=== PATIENT | female | born 1930 | race Caucasian/White ===

== ENCOUNTER 2019-02-26 23:11 | Inpatient (IN) | payer MEDICARE ==
[~2019-02-26 23:11] MED LIST: ISOVUE-370 76%-LOCM 1 ML ONE
[2019-02-27] MEDS ORDERED: Morphine 4 MG/ML VIAL ONE (00:07)
[2019-02-27] MEDS ORDERED: Ondansetron ODT 4 MG TAB SL PRN (03:40)
[2019-02-27] MEDS ORDERED: Acetaminophen 325 MG TAB PO PRN (03:40)
[2019-02-27] MEDS ORDERED: Ondansetron PF 4 MG/2 ML Vial IVP PRN (03:40)
[2019-02-27] MEDS: Morphine 2 MG/ML SYRINGE SLOW IVP PRN ×2 (03:57→07:50)
--- NOTE | 2019-02-27 09:10 | CT ---
PRELIMINARY REPORT/[facility]/EMERGENCY AFTER HOURS PROCEDURE: Addendum created by Juana Hope MD on 02/27/2019 1:16 AM Central Time ([place] & [place]) Findings were discussed with SOFI Newsome at 02/27/2019 1:16 AM CDT. Initial Report created on 02/27/2019 1:1 2 AM Central Time ([place] & [place]) EXAM: CT Angiography Abdomen and Pelvis With Contrast EXAM DATE/TIME: 02/27/2019 12:15 AM CLINICAL HISTORY: 88 years old, female; Generalized; Patient HX: F80 with HX of afib presents to the ED with C/O of abd ominal pain since last night. Per EMS, patient had fallen and was found on the ground by her son osmar vargas and had probable syncopal episode. TECHNIQUE: Imaging protocol: Axial computed tomographic angiography images of the abdomen and pelvis with intrav enous contrast material. Coronal and sagittal reformatted images were created and reviewed. 3D render ing: MIP reconstructed images were created and reviewed. COMPARISON: No relevant prior studies available. FINDINGS: Lungs: Bibasilar linear atelectasis/scarring. Heart: Marked cardiomegaly. Mediastinum: Small hiatal hernia. VASCULATURE: Aorta: Atherosclerotic changes of the abdominal aorta without aneurysm. Celiac trunk and mesenteric arteries: The celiac is patent without significant stenosis. The superior mesenteric artery is patent with less than 50% narrowing of the origin. The inferior mesenteric elab ry is patent. Renal arteries: Patent single left renal artery. Patent 2 right renal arteries with atherosclerotic c hronic changes at the origin. Right iliac arteries: No occlusion or significant stenosis. Left iliac arteries: No occlusion or significant stenosis. ABDOMEN: Liver: No liver masses. Gallbladder and bile ducts: Normal appearance of the gallbladder. No ductal dilation. Pancreas: No pancreatic mass or ductal dilation. Spleen: No splenic masses. Adrenals: No adrenal nodules. Kidneys and ureters: Bilateral renal cysts. Scarring left kidney interpolar region. At the anterior i nferior pole of the right kidney there is a 2.3 cm exophytic renal lesion not measuring simple cystic fluid. Abutting the inferior pole of the right kidney and extending inferiorly in the mid abdomen th ere is an approximately 8.8 x 7.1 x 9.2 cm simple cystic structure (sagittal x AP x transverse) . Stomach and bowel: No evidence of bowel ischemia. Incidental duodenal diverticulum. Colonic diverticu losis without evidence of acute diverticulitis. No bowel obstruction. Appendix: The appendix is not visualized, however there are no inflammatory changes in the right lowe r quadrant to suspect appendicitis. PELVIS: Bladder: Decompressed by Montgomery catheter. Reproductive: The uterus is not visualized. No adnexal masses. ABDOMEN and PELVIS: Intraperitoneal space: Unremarkable. No free air. No significant fluid collection. Bones/joints: The bones are demineralized. Grade 1 anterolisthesis of L5 with respect S1. Ageindeterm inate, possibly acute T11 vertebral body compression fracture with approximately 50% loss of vertebra l body height. Soft tissues: Bilateral calcified buttock injection granulomas. Lymph nodes: Unremarkable. No enlarged lymph nodes. IMPRESSION: 1. Atherosclerotic changes of the abdominal aorta without evidence of dissection or aneurysm. 2. No evidence of bowel ischemia. 3. Osteoporosis with age-indeterminate, possibly acute, compression fracture of the T11 vertebral bod y with approximately 50% loss of vertebral body height. 4. There is a 2.3 cm exophytic lesion in the inferior pole of the right kidney not measuring simple f luid density. This could represent a solid renal lesion or hyperdense cyst. Defer to on-site Radiolog ist for follow-up recommendations. Additionally there is an adjacent mid abdominal cyst measuring up to 9 cm that abuts the inferior surya e of the right kidney, likely a simple exophytic renal cyst. 5. Marked cardiomegaly. Thank you for allowing us to participate in the care of your patient. Dictated and Authenticated by: Juana Hope MD 02/27/2019 1:12 AM Central Time ([place] & [place]) FINAL REPORT EMERGENCY AFTER HOURS CTA ABDOMEN AND PELVIS: Date: 02/26/19 FINDINGS/IMPRESSION: I agree with the preliminary report provided by [facility]. 1. The extent of the narrowing at the SMA artery is moderate to severe. There is calcified ather osclerotic plaque that is slightly limiting the examination. 2. There is also mild narrowing involving the origin of the celiac artery. 3. 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 The left main renal artery is patent. 4. Bilateral renal cysts. 5. Bibasilar atelectasis. 6. Suspected acute compression fracture of T11. 7. Other chronic findings as above. POS: BH
[2019-02-27 10:49] LABS: #Monocytes 0.9 thou/uL (0.11-0.59); %Basophils 0.1 % (0.0-1.0); %Eosinophils 0.4 % (0.0-10.0); %Lymphocytes 21.8 % (21.0-51.0); %Monocytes 10.4 % (0.0-10.0); %Neutrophils 67.3 % (42.0-75.0); Hemoglobin 11.2 g/dL (12.0-16.0); Mean Corpuscular HGB CONC 33.9 g/dL (32.0-36.0); Mean Corpuscular Hemoglobin 31.3 pg (27.0-31.0); Mean Corpuscular Volume 92.3 fL (78.0-98.0); Mean Platelet Volume 8.1 fL (7.4-10.4); Platelet Count 189 thou/uL (130-400); RBC Distribution Width 11.8 % (11.5-14.5); Red Blood Cell (RBC) Count 3.56 mill/uL (4.20-5.40); White Blood Cell (WBC) Count 8.9 thou/uL (4.8-10.8)
[2019-02-27 11:04] LABS: ALT (SGPT) 20 U/L (8-55); AST (SGOT) 18 U/L (5-34); Albumin 3.7 g/dL (3.4-4.8); Alkaline Phosphatase 54 U/L (40-150); Anion Gap 10 mmol/L (10-20); BUN (Urea Nitrogen) 20 mg/dL (9.8-20.1); Bilirubin, Total 0.9 mg/dL (0.2-1.2); Calc. Creatinine Clearance 36 mL/min (70-130); Calcium 9.1 mg/dL (7.8-10.44); Carbon Dioxide 31 mmol/L (23-31); Chloride 101 mmol/L (98-107); Estimated GFR-MDRD 62; Globulin 2.1 g/dL (2.4-3.5); Glucose 97 mg/dL (83-110); Potassium 3.5 mmol/L (3.5-5.1); Protein, Total 5.8 g/dL (6.0-8.3); Sodium 138 mmol/L (136-145)
[2019-02-27] MEDS ORDERED: Amlodipine 5 MG TAB PO SCH ×2 (11:15→18:45)
[2019-02-27 11:16] LABS: Lactic Acid 0.7 mmol/L (0.5-2.2)
[2019-02-27 11:17] LABS: Troponin I 0.046 ng/mL (< 0.028)
[2019-02-27] MEDS ORDERED: diphenhydrAMINE 25 MG CAP PO PRN (11:19)
[2019-02-27] MEDS ORDERED: Promethazine HCl 25 MG/ML VIAL IM PRN (11:19)
[2019-02-27] MEDS ORDERED: diphenhydrAMINE 50 MG/ML VIAL IVP PRN (11:19)
[2019-02-27] MEDS ORDERED: Naloxone HCl 0.4 mg/ml Vial IV PRN (11:19)
[2019-02-27] MEDS ORDERED: diphenhydrAMINE 50 MG/ML VIAL IM PRN (11:19)
[2019-02-27] MEDS ORDERED: [UNRECOGNIZED DRUG - REMARK] FS SCH (11:30)
[2019-02-27 11:56] LABS: Hemoglobin 11.1 g/dL (12.0-16.0); Platelet Count 194 thou/uL (130-400)
[2019-02-27] MEDS: HYDROmorphone 10 mg/100 ml CADD IVPB PRN (12:30)
--- NOTE | 2019-02-27 13:04 | HP ---
CHIEF COMPLAINT: Abdominal pain. HISTORY OF PRESENT ILLNESS: The patient is an 88-year-old female with past medical history significant for atrial fibrillation, hypertension, and hyperlipidemia, who was admitted on transfer from [facility] to the local ER for evaluation and treatment of persistent severe abdominal pain and tenderness. The patient reportedly was well until a day ago when she woke up around 1 a.m. on February 26 with nausea. She headed towards the restroom to throw up, but apparently fell while in the bathroom. Family member heard the noise and found her on the floor and helped her on to her room in the bed. Several hours later, the patient developed severe abdominal pain which persisted with some nausea, necessitating presentation to the local ER where she was evaluated and was subsequently transferred over here for further evaluation and treatment. Pain was said to be 10/10 and was diffuse involving the whole abdomen associated with tenderness. The patient also was evaluated with CT angio of the abdomen and pelvis as well as CT scan of the abdomen and pelvis, which showed no acute pathology. Intestinal obstruction and free air were ruled out. The patient, however, was found to have T11 compression fracture, age indeterminate. There is no history of fever, vomiting, dysuria, hematuria, leg swelling, focal weakness, headache, cough, chest pain, or palpitation. The patient denied dizziness prior to the fall, but she had no memory of the fall. The patient reportedly normally has regular bowel motions with last one being on February 25 and has not had any bowel movement, subsequently though oral intake has been minimal. There has been no history of vomiting as well. PAST MEDICAL HISTORY: 1. Chronic atrial fibrillation. 2. Hyperlipidemia. 3. Hypertension. 4. Previous history of syncope and collapse. PAST SURGICAL HISTORY: 1. Appendectomy. 2. Hysterectomy. FAMILY HISTORY: Reviewed, but noncontributory. SOCIAL HISTORY: The patient lives with family members. Denied alcohol, tobacco, or recreational drug use. ALLERGIES: NO KNOWN DRUG ALLERGIES REPORTED. HOME MEDICATIONS: 1. Cholecalciferol 1000 unit daily. 2. Digoxin 250 mcg daily. 3. Hydralazine 50 mg p.o. b.i.d. 4. Losartan 100 mg p.o. daily. 5. Montelukast 10 mg p.o. daily. 6. MiraLAX b.i.d. 7. Simvastatin 80 mg p.o. daily at bedtime. REVIEW OF SYSTEMS: 12-point review of systems reviewed were negative other than pertinent positives and negatives included in the history of present illness. PHYSICAL EXAMINATION: VITAL SIGNS: Temperature 99.1, pulse 68, respiratory rate 14, SpO2 of 94 on 2 L nasal cannula, blood pressure is 142/64. Noteworthy, on presentation to the [place] ER, blood pressures were above 200 and the patient required several IV boluses of hydralazine. GENERAL: Elderly female, in [id number] painful distress. Afebrile, anicteric, acyanotic. HEENT: Normocephalic and atraumatic. Oral mucosa is dry. Pupils are reacting to light. NECK: Supple, nontender with full range of motion. No masses or lymphadenopathy appreciated. CARDIOVASCULAR: Irregular rhythm with normal rate. Normal heart sounds one and two with no obvious murmur was appreciated. RESPIRATORY: Fair air entry bilaterally with no obvious crackle or rhonchi or use of accessory muscles. Respiratory effort is limited due to pain. GI: Mildly distended with diffuse marked tenderness in all quadrants. Bowel sound is present. : Montgomery catheter is in place. EXTREMITIES: Grossly normal looking, atraumatic with no obvious edema, erythema, or cyanosis. Distal pulses are palpable. MUSCULOSKELETAL: Mild tenderness of the left flank and chest noted. DIAGNOSTIC DATA: CBC on February 26 showed WBC count of 11.7, hemoglobin of 12.3, MCV of 89.5, and platelet of 225. CMP performed on February 26 showed sodium 139, potassium 3.4, chloride 101, CO2 of 24, anion gap 17, BUN 19, creatinine 0.86, glucose 113, calcium 10.5, total bilirubin 0.9, AST 26, ALT 20, alkaline phosphatase 61 total protein 7.1, albumin 4.3, globulin 2.8. Cardiac enzymes show CPK of 79 and initial troponin of 0.017. Lipase is 18. Lactic acid on February 26 was 0.9. Urinalysis performed on February 26 showed dark yellow urine with pH of 7.0, specific gravity of 1.02, positive protein, but negative glucose, ketone, blood, nitrite, and bilirubin. Leukocyte esterase was trace and wbc was 11 to 20. DIAGNOSTIC DATA: CT angio of the abdomen and pelvis showed bibasilar linear atelectasis and scarring of the lungs, marked cardiomegaly, and small hiatal hernia. It showed atherosclerotic changes without aneurysm. There was no evidence of bowel ischemia, also noted was a 2.3 exophytic lesion in the inferior pole of the right kidney. There was [id number] SMA artery narrowing with calcified atherosclerotic plaque, also noted mild narrowing involving the origin of the celiac artery as well as a high-grade and hemodynamically significant stenosis involving the origin of the two separate renal arteries on the right while left main renal artery is patent. Acute compression fracture of T11 also we are suspected. X-ray of the chest with ribs showed no definite fracture. EKG showed atrial fibrillation with controlled rate of 77. Widespread ST and T-wave of nonspecific abnormalities also were noted. ASSESSMENT: 1. Severe abdominal pain and tenderness. The patient has significant history of hyperlipidemia as well as atrial fibrillation. Marked physical finding of severe tenderness without overt obstruction or pathology on CT scan and the presence of significant vascular atherosclerosis is suggestive of ischemic bowel disease. 2. Syncope and collapse: This may be due to vasovagal given nausea and prior history of similar event. However, cardiogenic etiologies cannot be ruled out. 3. Chronic atrial fibrillation with controlled rate. 4. T11 compression fracture, age indeterminate. 5. Hypertension. 6. Hyperlipidemia. PLAN: 1. We will start the patient on anticoagulation with heparin. 2. We will move the patient to telemetry. 3. We will rule out acute myocardial infarction with serial troponin. 4. We will also get repeat CBC and renal function given contrast studies of yesterday. 5. We will also get lactic acid. 6. We will keep the patient n.p.o. 7. We will start dextrose containing IV fluids for now. 8. General surgery consult will be requested. 9. Appreciate input from Neurosurgery. We will also get carotid Doppler and echocardiogram given history of syncope and collapse. 10. We will also get orthostatic vitals. 11. Code status: Full code. The patient's son is the surrogate decision maker. Job ID: [id number]
[2019-02-27] MEDS: Heparin 10,000 UNITS/ 10 ML VIAL SLOW IVP SCH ×2 (15:09→22:27)
[2019-02-27] MEDS: Heparin 25,000 units/D5W 500 ML IVPB SCH (15:13)
--- NOTE | 2019-02-27 15:55 | CON ---
DATE OF CONSULTATION: This is a 50-minute initial patient evaluation of which greater than 50% of the exam was spent in counseling and coordinating the patient's care. Remainder of the exam was spent in review of the patient's medical records, review of appropriate imaging studies. CHIEF COMPLAINT: Status post fall roughly 2 days ago with significant right-sided abdominal pain and tenderness. HISTORY OF PRESENT ILLNESS: Ms. Mae is a pleasant 88-year-old female, who presents as a transfer from [facility] for significant right flank and abdominal pain with tenderness. The patient apparently fell due to some nausea as she was attempting to boothe to the bathroom to vomit. She does not complain much of back pain or leg pain or leg weakness. She states she actually is feeling much better now, but she has had some pain medications. Review of the patient's CT of the abdomen and pelvis shows a burst fracture at T10, I am calling it T10 as it looks as the patient has a Lumbarized sacrum. So for my reference, I will defer to it is a T10 burst fracture. There does not appear to be any significant retropulsion or significant central canal stenosis. PHYSICAL EXAMINATION: The patient is sleepy, but awakens easily and is appropriate. She has good strength in all the extremities with intact sensation to light touch throughout. She does not yet have a clamshell TLSO brace. IMPRESSION/DIAGNOSES: 1. Status post fall with right flank pain and T10 burst fracture. 2. History of atrial fibrillation, apparently not on any blood thinners. PLAN: At this time, the patient has been admitted to Medicine for medical workup given her nausea and abdominal pain. From neurosurgical standpoint, the patient does not require neurosurgical intervention. We will plan to heal her fracture conservatively in a clamshell TLSO brace. I would like her to wear this any time she is out of bed. We will set a followup appointment for our clinic in the next 2 to 4 weeks with upright thoracolumbar AP and lateral x-rays. Please call with any changes in the patient's neurologic status. Job ID: [id number]
--- NOTE | 2019-02-27 16:15 | CON ---
DATE OF CONSULTATION: 02/27/2019 REQUESTING PHYSICIAN: Sara De La Cruz obi, MD HISTORY OF PRESENT ILLNESS: This is an 88-year-old woman, who was admitted early this morning with sudden onset severe abdominal pain, for which the patient was previously evaluated in the Emergency Department. She underwent a CT scan of the abdomen and pelvis, which was unremarkable for any acute pathology. Pain was rated at over 10/10 and was generalized in nature. The pain failed to resolve, when it resolved, the patient was transferred from [place] to [place], [place] for upper level workup and care. CT angiography of the abdomen was obtained here within 12 hours of the previous. Again, no acute pathology is seen. 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 She experienced what I suspect to be a vasovagal, which caused her to fall without any head trauma or loss of consciousness. She has had no diarrhea, hematemesis, hematochezia, or melena. The patient denies any fevers or chills. PAST MEDICAL HISTORY: Significant for chronic atrial fibrillation, though rate controlled. She also has essential hypertension, hyperlipidemia, and degenerative arthritic disease. PAST SURGICAL HISTORY: Significant for total abdominal hysterectomy with bilateral salpingo-oophorectomy as well as appendectomy. SOCIAL HISTORY: The patient lives independently. She denies any cigarette smoking, ethanol, or illicit drug abuse. FAMILY HISTORY: Noncontributory for this patient's age. PREHOSPITALIZATION MEDICATIONS: This includes; 1. Vitamin D 1000 units p.o. at bedtime. 2. Hydralazine 50 mg p.o. b.i.d. 3. Losartan 100 mg p.o. daily. 4. Digoxin 0.25 mg p.o. at bedtime. 5. Montelukast 10 mg p.o. at bedtime. 6. Simvastatin 80 mg p.o. at bedtime. ALLERGIES: THE PATIENT HAS NO KNOWN DRUG ALLERGIES. REVIEW OF SYSTEMS: Ten-point review of systems essentially unremarkable except as stated in past medical history and chief complaint. PHYSICAL EXAMINATION: GENERAL: This reveals an 88-year-old normally developed woman, who is otherwise coherent and interactive and appears stated age. The patient is alert and oriented x3, appears to be in moderate acute distress secondary to severe abdominal pain. VITAL SIGNS: Includes blood pressure 142/64, pulse 68, respiratory rate is 14, temperature 99.1 degrees Fahrenheit, and oxygen saturation is 94% on 2 L nasal cannula oxygen. HEENT: Reveals normocephalic and atraumatic. Pupils are equal, round, and reactive to light and accommodation. HEART: Reveals irregular rate and irregular rhythm. LUNGS: Clear to auscultation bilaterally. Breathing, regular and unlabored. ABDOMEN: Soft and moderately distended. She has a severe diffuse abdominal tenderness to palpation with gross rebound tenderness present. Liver and spleen, otherwise nonpalpable below costal margins. EXTREMITIES: Reveal 2+ radial and pedal pulses bilaterally. No ankle edema is present. NEUROLOGIC: Reveals no focal deficits present. LABORATORY FINDINGS: Today include a CBC with 8900 white blood cells, hemoglobin and hematocrit 11.2 and 32.9 respectively. Platelet count is 189,000. Metabolic profile; sodium 138, potassium 3.5, chloride is 101, bicarb is 31, BUN 20, creatinine 0.86, and glucose is 97. Procalcitonin is 0.02. I have reviewed the CT angiography of the abdomen and pelvis, which was obtained yesterday and remarkable for no acute pathology. However, extensive vascular calcifications involving the aorta and moderate calcific stenosis of the superior mesenteric artery and to a lesser extent, celiac artery. No pneumoperitoneum or free fluid is noted. IMPRESSION: 1. Acute severe abdominal pain out of proportion to physical examination, this is likely secondary to acute ischemic colitis. 2. History of arthrosclerotic vascular disease. 3. History of hyperlipidemia. 4. History of essential hypertension. PLAN: 1. There is no clinical indication of bowel necrosis at this time. Therefore, I recommend we initiate full anticoagulation with heparin infusion. 2. We will continue with serial physical examination and consider surgical indication if there is any clinical, radiographic, or laboratory evidence of bowel necrosis. 3. Above findings and recommendation has been discussed with the patient and her elderly sister at bedside. 4. They both indicated understanding information given. I have answered their questions. Thank you again, Dr. Méndez, for allowing me the opportunity to participate in the care of this patient. Job ID: [id number]
[2019-02-27] MEDS: Dextrose 5%-Lactated Ringers 1,000 ML IV SCH ×2 (18:21→19:57)
[2019-02-27] MEDS: hydrALAZINE 20 MG/ML VIAL SLOW IVP PRN (19:56)
[2019-02-27] MEDS: Montelukast Sodium 10 mg Tablet PO SCH (21:11)
[2019-02-27] MEDS: Atorvastatin Calcium 40 MG TAB PO SCH (21:11)
[2019-02-27] MEDS: Digoxin 0.25 MG TAB PO SCH (21:11)
--- NOTE | 2019-02-27 21:30 | ULT ---
CAROTID DUPLEX ULTRASOUND: 02/27/19 INDICATION: History of syncope. COMPARISON: None. FINDINGS: There is partial calcified atherosclerotic plaque involving the proximal right internal carotid arter y and the right carotid bulb. There is heavy shadowing partially calcified atherosclerotic plaque in volving the origin and proximal aspect of the left internal carotid artery. Peak systolic velocity of the right CCA was 149.2 cm/s whereas the peak systolic velocity within the right ICA was 171.7 cm (proximal right internal carotid artery). The right IC to CC ratio is 1.15. Peak systolic velocity of the left CCA was 101.2 cm/s whereas the peak systolic velocity within the l eft ICA was 153.5 cm. Note is made of a severe high grade stenosis of the origin of the external navarrete tid artery where the peak systolic velocity proximally measuring 336.9 cm/s. The left IC to CC ratio is 1.52. There is antegrade flow within both vertebral arteries. IMPRESSION: 1. 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 2. 50 to 69% stenosis involving the origin and proximal aspect of the left internal carotid elba ry. 3. 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 4. Recommend further evaluation with a CTA of the neck for additional characterization for the s tenosis involving the internal carotid arteries bilaterally. POS: BH
[2019-02-28] MEDS: hydrALAZINE 20 MG/ML VIAL SLOW IVP PRN (03:31)
[2019-02-28] MEDS: Dextrose 5%-Lactated Ringers 1,000 ML IV SCH ×2 (03:40→17:38)
--- NOTE | 2019-02-28 03:45 | PRG ---
DATE OF SERVICE: 02/28/2019 SUBJECTIVE: The patient is currently on the telemetry unit. She was admitted today for suspected acute ischemic colitis. She has been started on heparin drip and her pain is currently controlled with a Dilaudid LEVEL VIAL CURVATURE GAUGER. Of note, the nurse spoke with the family to ensure that they were not pushing the button before the patient. It is suspected that they may have pushed it before the patient. Otherwise, the patient has not had any issues at this time. She remained n.p.o. OBJECTIVE: VITAL SIGNS: Stable. The patient does appear to be hypertensive and the primary medicine team is managing this. Otherwise, she is stable and afebrile. GENERAL: The patient is resting comfortably in bed. She is sleeping, but easily awakens to verbal stimuli and states that her pain is controlled at this time. ABDOMEN: Soft, minimally tender with active bowel sounds. ASSESSMENT AND PLAN: Suspected acute ischemic colitis. Plan will be to continue medical management per the Primary Team and continue to follow along for signs of bowel necrosis. Job ID: [id number]
[2019-02-28 05:19] LABS: Band 5 % (5-11); Hemoglobin 11.5 g/dL (12.0-16.0); Lymphocytes 14 % (21-51); MDiff Complete? YES; Mean Corpuscular HGB CONC 33.9 g/dL (32.0-36.0); Mean Corpuscular Hemoglobin 31.4 pg (27.0-31.0); Mean Corpuscular Volume 92.6 fL (78.0-98.0); Mean Platelet Volume 8.3 fL (7.4-10.4); Monocytes 10 % (0-10); Neutrophil 70 % (42-75); Platelet Count 187 thou/uL (130-400); Platelet Morphology Comment Appears Adequate; RBC Distribution Width 11.7 % (11.5-14.5); Reactive Lymphocytes 1 % (0-10); Red Blood Cell (RBC) Count 3.66 mill/uL (4.20-5.40); White Blood Cell (WBC) Count 11.6 thou/uL (4.8-10.8)
[2019-02-28 05:24] LABS: Anion Gap 9 mmol/L (10-20); BUN (Urea Nitrogen) 20 mg/dL (9.8-20.1); Calc. Creatinine Clearance 39 mL/min (70-130); Calcium 9.2 mg/dL (7.8-10.44); Carbon Dioxide 29 mmol/L (23-31); Cardiac Risk 2.6 (Less than 4.5); Chloride 99 mmol/L (98-107); Cholesterol 125 mg/dl (< 200 Desired); Estimated GFR-MDRD 62; Glucose 137 mg/dL (83-110); HDL Cholesterol 48 mg/dL (>60 Neg Risk); LDL Cholesterol, Calculated 57 mg/dL; Potassium 3.4 mmol/L (3.5-5.1); Sodium 134 mmol/L (136-145); Triglycerides 102 mg/dL (Less than 150)
[2019-02-28] MEDS ORDERED: Potassium Chloride 10 MEQ in Premix Bag 1 BAG IVPB SCH (08:30)
[2019-02-28] MEDS: Losartan 25 MG TAB PO SCH (08:47)
[2019-02-28] MEDS: Amlodipine 10 MG TAB PO SCH (08:47)
[2019-02-28] MEDS: Potassium Chloride 20 MEQ in Premix Bag 1 BAG IVPB SCH ×2 (08:47→11:46)
[2019-02-28] MEDS ORDERED: Amlodipine 5 MG TAB PO SCH (09:00)
--- NOTE | 2019-02-28 11:15 | PDOC.HOSPP ---
- Subjective Subjective: 88 y/o female admitted due to persistent severe abdominal pain and tenderness. Impression of mesenteric ischemia was made and patient was started on anticoagulation with heparin. Still having pain. No BM since admission. No emesis, chest pain or fever. - Objective Vital Signs & Weight: Vital Signs (12 hours) Temp Pulse Resp BP BP Pulse Ox 02/28/19 08:47 82 02/28/19 07:28 97.7 F 82 18 171/72 H 94 L 02/28/19 03:41 98.0 F 82 18 173/74 H 02/28/19 03:31 82 173/74 H 02/27/19 23:20 94 184/80 H Weight Admit Weight 110 lb 3.2 oz Weight 120 lb I&O: 02/27/19 02/28/19 03/01/19 06:59 06:59 06:59 Intake Total 300 2638 Output Total 140 475 Balance 160 2163 Result Diagrams: 02/28/19 04:44 02/28/19 04:44 ROS - Review of Systems All systems: All other ROS were reviewed and found negative. - Medication Medications: Active Medications Generic Name Dose Route Start Last Admin Trade Name Freq PRN Reason Stop Dose Admin Amlodipine Besylate 10 mg 02/28/19 09:00 02/28/19 08:47 Norvasc PO 10 mg DAILY MARK Administration Atorvastatin Calcium 40 mg 02/27/19 21:00 02/27/19 21:11 Lipitor PO 40 mg HS MARK Administration Digoxin 0.25 mg 02/27/19 21:00 02/27/19 21:11 Lanoxin PO 0.25 mg HS MARK Administration Heparin Sodium (Porcine) 0 units 02/27/19 11:15 02/27/19 22:27 Heparin 1,000 Units/Ml (10 Ml) SLOW IVP 1,724 units ASDIR MARK Administration Protocol Hydralazine HCl 10 mg 02/27/19 18:45 02/28/19 03:31 Apresoline SLOW IVP 10 mg Q4H PRN Administration Hypertension Hydromorphone HCl 0 mg 02/27/19 11:19 02/27/19 12:30 Dilaudid Cadd IVPB 10 mg INF PRN Administration Pain Dextrose/Lactated Ringer's 1,000 mls @ 100 mls/hr 02/27/19 11:00 02/28/19 03: 40 D5 Lr IV 1,000 mls .Q10H MARK Administration Heparin Sodium/Dextrose 500 mls @ 0 mls/hr 02/27/19 11:15 02/27/19 15:13 Heparin 25,000 Units/D5w 500 Ml IVPB 500 mls INF MARK Administration Protocol Per Protocol Potassium Chloride 20 meq/ 100 mls @ 50 mls/hr 02/28/19 08:30 02/28/19 08:47 Device IVPB 02/28/19 12:29 100 mls Q2H MARK Administration Losartan Potassium 100 mg 02/28/19 09:00 02/28/19 08:47 Cozaar PO 100 mg DAILY MARK Administration Montelukast Sodium 10 mg 02/27/19 21:00 02/27/19 21:11 Singulair PO 10 mg HS MARK Administration Sodium Chloride 10 ml 02/27/19 09:00 02/28/19 08:48 Flush - Normal Saline IVF 10 ml Q12HR MARK Administration Sodium Chloride 10 ml 02/27/19 03:41 02/27/19 03:58 Flush - Normal Saline IVF 10 ml PRN PRN Administration Saline Flush - Exam awake alert, ill appearing Eye: anicteric sclera ENT: normocephalic atraumatic Neck: supple, no JVD Heart: irregular (soft systolic murmur noted) Respiratory: no wheezes, no rales (diminished air movement bilaterally.) Gastrointestinal: tender to palpation (bowel sound is hypoactive.), distended Extremities: no cyanosis, no clubbing, no edema Neurological: CN's grossly intact, no focal deficits Psychiatric: A&O x 3 Hosp A/P (1) Acute mesenteric ischemia Code(s): K55.059 - ACUTE ISCHEMIA OF INTESTINE, PART AND EXTENT UNSPECIFIED Status: Acute (2) Abdominal distension Code(s): R14.0 - ABDOMINAL DISTENSION (GASEOUS) Status: Acute (3) Abdominal tenderness, generalized Code(s): R10.817 - GENERALIZED ABDOMINAL TENDERNESS Status: Acute (4) Chronic atrial fibrillation Code(s): I48.2 - CHRONIC ATRIAL FIBRILLATION Status: Acute (5) HTN (hypertension) Code(s): I10 - ESSENTIAL (PRIMARY) HYPERTENSION Status: Acute (6) Hypokalemia Code(s): E87.6 - HYPOKALEMIA Status: Acute (7) Moderate mitral regurgitation Code(s): I34.0 - NONRHEUMATIC MITRAL (VALVE) INSUFFICIENCY Status: Acute (8) Atherosclerosis of both carotid arteries Code(s): I65.23 - OCCLUSION AND STENOSIS OF BILATERAL CAROTID ARTERIES Status : Acute (9) HLD (hyperlipidemia) Code(s): E78.5 - HYPERLIPIDEMIA, UNSPECIFIED Status: Acute (10) Elevated troponin Code(s): R74.8 - ABNORMAL LEVELS OF OTHER SERUM ENZYMES Status: Acute - Plan Add losartan to amlodipine to get better BP cobtrol. Replete serum potassium and het serum magnesium level. Continue anticoagulation with heparin. Start restart aspirin PPI and analgesic to continue. Get lactic acid in the am. Follow troponin.
[2019-02-28] MEDS ORDERED: Ketorolac Tromethamine 30 MG/ML VIAL IVP SCH (12:15)
[2019-02-28] MEDS ORDERED: Piperacillin/Tazobactam 3.375 GM in Sodium Chloride 0.9% 100 ML IVPB SCH (12:15)
[2019-02-28] MEDS ORDERED: Cyclobenzaprine 10 MG TAB PO SCH (12:15)
[2019-02-28] MEDS ORDERED: Saccharomyces boulardii 250 MG CAP PO SCH (12:15)
--- NOTE | 2019-02-28 12:41 | RAD ---
PORTABLE CHEST 1 VIEW: Date: 02/28/19 Time: 1154 hours HISTORY: Respiratory distress. FINDINGS/IMPRESSION: The heart is enlarged. The aorta is tortuous. There is pulmonary vascular congestion with small bilat eral pleural effusions and bibasilar opacities. No pneumothoraces are identified. POS: H
[2019-02-28] MEDS: Albuterol Sulfate 1.25 MG/3 ML NEB NEB SCH ×3 (14:33→23:22)
[2019-02-28] MEDS: Gabapentin 100 MG CAP PO SCH ×2 (14:51→21:01)
[2019-02-28] MEDS: Acetaminophen 1,000 MG in Premix Bag 1 BAG IVPB SCH ×2 (14:51→21:01)
[2019-02-28] MEDS ORDERED: Furosemide 20 MG/2 ML VIAL SLOW IVP SCH (15:15)
[2019-02-28] MEDS: Ketorolac Tromethamine 30 MG/ML VIAL IVP SCH (17:38)
[2019-02-28] MEDS: Piperacillin/Tazobactam 3.375 GM in Sodium Chloride 0.9% 100 ML IVPB SCH (17:39)
--- NOTE | 2019-02-28 18:07 | PRG ---
DATE OF SERVICE: 02/28/2019 SUBJECTIVE: Ms. Mae is an 88-year-old woman, whom I saw yesterday in consultation for severe acute onset abdominal pain. Ischemic colitis was diagnosed. The patient was started on heparin continuous infusion. This morning, she reports improvement with regard to her abdominal pain. She now complains of right lateral chest wall pain corresponding to where she had landed during her pre-admission fall. Urinary output has been adequate. She has been on no vasopressor or inotropic support. She remains in chronic atrial fibrillation, rate controlled. She is, however, having increased work of breathing with shallow respirations and complain of dyspnea. OBJECTIVE: VITAL SIGNS: This morning, blood pressure 171/72, pulse 82 and irregular, respiratory rate 28, temperature 97.4 degrees Fahrenheit, oxygen saturation 92% on 2 L by nasal cannula oxygen. HEENT: Reveals bilateral scleral edema, however, pupils are equal, round, and reactive to light and accommodation. She has no jugular venous distention noted. HEART: Reveals irregular rate and rhythm. LUNGS: Reveal scattered bibasilar rhonchi. Breathing otherwise regular and unlabored. ABDOMEN: Soft, moderately distended, and moderately tender to palpation with no rebound tenderness present today. Bowel sounds in all 4 quadrants normoactive. EXTREMITIES: Reveal 2+ radial and pedal pulses bilaterally. No ankle edema is present. NEUROLOGIC: Reveals no focal deficits present. LABORATORY FINDINGS: CBC with 11,600 white blood cells. Hemoglobin and hematocrit 11.5 and 33.9 respectively. The platelet count is 187,000. Differential count as follows: 70% segmented neutrophils, 5 bands, 14 lymphocytes, and 10 monocytes. Metabolic profile: Sodium is 134, potassium is 3.4, chloride is 99, bicarb is 29, BUN is 20, creatinine is 0.86, glucose is 137, magnesium is 1.7. IMAGING STUDIES: I have personally reviewed the chest x-ray which was obtained which reveals slight cardiomegaly with some increase in bilateral perihilar pulmonary markings. There is right lower lobe atelectasis. IMPRESSIONS: 1. Acute ischemic colitis with no clinical evidence of bowel necrosis. 2. Acute hypokalemia. 3. Acute hypomagnesemia. 4. Acute pulmonary insufficiency, likely secondary to pulmonary atelectasis with concomitant hypovolemia. Evaluating the patient's input and output, she is ahead 2.1 L in the last 24 hours which is probably generous for her 50 kg frame. RECOMMENDATIONS: 1. Continue with bowel rest and initiate prophylactic IV antibiotics as the patient is at risk for bacterial translocation with ischemic colitis. 2. Correct abnormal electrolytes. 3. The patient will be placed on noninvasive mechanical ventilator support. 4. Continue with heparin infusion at this time. 5. There remains no acute surgical indication for this patient at this time, however, General Surgery will continue to follow the patient with serial physical examination and make further recommendations as necessary. Above findings and plan discussed with the patient and her elderly sister at bedside. They both indicated understanding information given. Job ID: [id number]
[2019-02-28] MEDS: HYDROmorphone 10 mg/100 ml CADD IVPB PRN (18:37)
[2019-02-28] MEDS: Montelukast Sodium 10 mg Tablet PO SCH (21:00)
[2019-02-28] MEDS: Atorvastatin Calcium 40 MG TAB PO SCH (21:01)
[2019-02-28] MEDS: Digoxin 0.25 MG TAB PO SCH (21:02)
[2019-02-28] MEDS: Heparin 25,000 units/D5W 500 ML IVPB SCH (21:17)
[2019-02-28 23:00] LABS: Digoxin 0.57 ng/mL (0.8-2.0)
[2019-03-01] MEDS: Piperacillin/Tazobactam 3.375 GM in Sodium Chloride 0.9% 100 ML IVPB SCH ×4 (00:53→18:21)
[2019-03-01] MEDS: Ketorolac Tromethamine 30 MG/ML VIAL IVP SCH ×2 (00:54→05:20)
--- NOTE | 2019-03-01 01:40 | PRG ---
DATE OF SERVICE: 03/01/2019 SUBJECTIVE: The patient is currently in IMCU. She was moved from the telemetry unit today after it was noted she was having increased work of breathing. She is currently on BiPAP and was diuresed today. This is a patient that we are seeing in consultation for suspected ischemic colitis. OBJECTIVE: VITAL SIGNS: Show the patient to be afebrile. This evening, she has had episodes of bradycardia. Her systolic blood pressure is stable. GENERAL: The patient appears in no distress. She is tolerating her BiPAP. With gentle verbal stimulation, she does open her eyes and that does increase her heart rate. Otherwise, she appears comfortable. The patient has put out 600 mL of urine since her dose of Lasix. ASSESSMENT/PLAN: 1. Acute ischemic colitis with no current evidence of bowel necrosis. 2. Electrolyte abnormalities. 3. Acute pulmonary insufficiency. Plan will be to continue supportive care per the Day Team. The primary medicine team is following her bradycardia, have been informed that they have ordered a digoxin level and are holding her evening dose of digoxin. We will continue to follow. Job ID: [id number]
[2019-03-01] MEDS: Dextrose 5%-Lactated Ringers 1,000 ML IV SCH ×3 (03:57→15:00)
[2019-03-01 03:59] LABS: #Eosinphils 0.2 thou/uL (0.0-0.7); #Lymphocytes 2.5 thou/uL (1.20-3.40); #Monocytes 0.8 thou/uL (0.11-0.59); %Basophils 0.5 % (0.0-1.0); %Eosinophils 3.1 % (0.0-10.0); %Lymphocytes 32.4 % (21.0-51.0); %Monocytes 11.1 % (0.0-10.0); Hemoglobin 9.8 g/dL (12.0-16.0); Mean Corpuscular HGB CONC 34.7 g/dL (32.0-36.0); Mean Corpuscular Hemoglobin 32.1 pg (27.0-31.0); Mean Corpuscular Volume 92.5 fL (78.0-98.0); Mean Platelet Volume 8.3 fL (7.4-10.4); Platelet Count 156 thou/uL (130-400); RBC Distribution Width 11.9 % (11.5-14.5); Red Blood Cell (RBC) Count 3.04 mill/uL (4.20-5.40); White Blood Cell (WBC) Count 7.6 thou/uL (4.8-10.8)
[2019-03-01 04:24] LABS: ALT (SGPT) 12 U/L (8-55); AST (SGOT) 15 U/L (5-34); Albumin 2.9 g/dL (3.4-4.8); Alkaline Phosphatase 45 U/L (40-150); Anion Gap 11 mmol/L (10-20); BUN (Urea Nitrogen) 23 mg/dL (9.8-20.1); Bilirubin, Total 0.8 mg/dL (0.2-1.2); Calc. Creatinine Clearance 33 mL/min (70-130); Calcium 8.8 mg/dL (7.8-10.44); Carbon Dioxide 26 mmol/L (23-31); Chloride 102 mmol/L (98-107); Estimated GFR-MDRD 51; Globulin 1.9 g/dL (2.4-3.5); Glucose 116 mg/dL (83-110); Potassium 3.5 mmol/L (3.5-5.1); Protein, Total 4.8 g/dL (6.0-8.3); Sodium 135 mmol/L (136-145)
[2019-03-01] MEDS: Albuterol Sulfate 1.25 MG/3 ML NEB NEB SCH ×4 (07:17→23:46)
[2019-03-01] MEDS: Gabapentin 100 MG CAP PO SCH ×3 (09:14→20:38)
[2019-03-01] MEDS: Acetaminophen 500 MG TAB PO SCH ×3 (09:14→20:39)
[2019-03-01] MEDS: Amlodipine 10 MG TAB PO SCH (09:14)
[2019-03-01] MEDS: Saccharomyces boulardii 250 MG CAP PO SCH (09:15)
[2019-03-01] MEDS: Losartan 25 MG TAB PO SCH (09:15)
[2019-03-01] MEDS ORDERED: DC PCA Order Set 1 EACH FS ONE (09:23)
[2019-03-01] MEDS ORDERED: Senokot 8.6 MG TAB PO SCH (09:30)
--- NOTE | 2019-03-01 09:43 | PRG ---
DATE OF SERVICE: 03/01/2019 Ms. Mae is admitted for a thoracolumbar anterior middle column fracture. This is going to be treated in a brace. She has remained neurologically at her baseline. There is no role for neurosurgical operative intervention. We will arrange followup in our clinic with x-rays and clinical assessment. Job ID: [id number]
[2019-03-01] MEDS ORDERED: Morphine 2 MG/ML SYRINGE SLOW IVP PRN (10:36)
[2019-03-01] MEDS ORDERED: Potassium Chloride 20 MEQ TAB PO SCH (13:15)
[2019-03-01 13:41] LABS: Magnesium 1.8 mg/dL (1.6-2.6); Phosphorus 3.2 mg/dL (2.3-4.7)
[2019-03-01] MEDS ORDERED: Polyethylene Glycol 3350 17 GM Packet PO PRN (14:30)
--- NOTE | 2019-03-01 14:41 | PDOC.HOSPP ---
- Subjective Subjective: Patient seen and examined for Back pain/Mesenteric ischemia. Abd pain improving. Back pain on movement +. No new complaints. No overnight events - Objective Vital Signs & Weight: Vital Signs (12 hours) Temp Pulse Pulse Pulse Resp BP BP 03/01/19 13:48 81 26 H 03/01/19 10:55 72 75 148/70 H 164/64 H 03/01/19 10:38 98.3 F 03/01/19 09:14 66 03/01/19 07:36 03/01/19 07:24 03/01/19 07:17 66 24 H 03/01/19 07:13 98.3 F 03/01/19 04:00 97.4 F L Pulse Ox Pulse Ox Pulse Ox 03/01/19 13:48 99 03/01/19 10:55 98 92 L 03/01/19 10:38 03/01/19 09:14 03/01/19 07:36 94 L 03/01/19 07:24 99 03/01/19 07:17 99 03/01/19 07:13 03/01/19 04:00 Weight Admit Weight 110 lb 3.2 oz Weight 124 lb 6.4 oz Most Recent Monitor Data Heart Rate from ECG 71 NIBP 150/68 NIBP BP-Mean 95 Respiration from ECG 25 SpO2 98 I&O: 02/28/19 03/01/19 03/02/19 06:59 06:59 06:59 Intake Total 2638 3045 Output Total 475 1900 1400 Balance 2163 1145 -1400 Result Diagrams: 03/02/19 02:52 03/02/19 02:52 EKG Reviewed by me: Yes (Tele SR) ROS - Review of Systems All systems: All other ROS were reviewed and found negative. Respiratory: denies: cough, dry, shortness of breath, hemoptysis, SOB with excertion, pleuritic pain, sputum, wheezing, other Cardiovascular: denies: chest pain, palpitations, orthopnea, paroxysmal noc. dyspnea, edema, light headedness, other - Medication Medications: Active Medications Generic Name Dose Route Start Last Admin Trade Name Freq PRN Reason Stop Dose Admin Acetaminophen 1,000 mg 03/01/19 09:00 03/01/19 09:14 Tylenol PO 1,000 mg TID MARK Administration Albuterol Sulfate 1.25 mg 02/28/19 13:00 03/01/19 13:48 Albuterol Sulfate NEB 1.25 mg [id number] MARK Administration Amlodipine Besylate 10 mg 02/28/19 09:00 03/01/19 09:14 Norvasc PO 10 mg DAILY MARK Administration Atorvastatin Calcium 40 mg 02/27/19 21:00 02/28/19 21:01 Lipitor PO 40 mg HS MARK Administration Cholecalciferol 1,000 units 02/28/19 21:00 02/28/19 21:00 Vitamin D3 PO 1,000 units HS MARK Administration Digoxin 0.25 mg 02/27/19 21:00 02/28/19 21:02 Lanoxin PO Not Given HS MARK Gabapentin 100 mg 02/28/19 15:00 03/01/19 09:14 Neurontin PO 100 mg TID MARK Administration Heparin Sodium (Porcine) 0 units 02/27/19 11:15 02/27/19 22:27 Heparin 1,000 Units/Ml (10 Ml) SLOW IVP 1,724 units ASDIR MARK Administration Protocol Hydralazine HCl 10 mg 02/27/19 18:45 02/28/19 03:31 Apresoline SLOW IVP 10 mg Q4H PRN Administration Hypertension Dextrose/Lactated Ringer's 1,000 mls @ 100 mls/hr 02/27/19 11:00 03/01/19 03: 57 D5 Lr IV Not Given .Q10H MARK Heparin Sodium/Dextrose 500 mls @ 0 mls/hr 02/27/19 11:15 02/28/19 21:17 Heparin 25,000 Units/D5w 500 Ml IVPB 500 mls INF MARK Administration Protocol Per Protocol Piperacillin Sod/Tazobactam 100 mls @ 200 mls/hr 02/28/19 18:00 03/01/19 12: 35 Sod 3.375 gm/ Sodium Chloride IVPB 100 mls Q6HR MARK Administration Losartan Potassium 100 mg 02/28/19 09:00 03/01/19 09:15 Cozaar PO 100 mg DAILY MARK Administration Montelukast Sodium 10 mg 02/27/19 21:00 02/28/19 21:00 Singulair PO 10 mg HS MARK Administration Saccharomyces Boulardii 250 mg 03/01/19 09:00 03/01/19 09:15 Florastor PO 250 mg DAILY MARK Administration Sodium Chloride 10 ml 02/27/19 09:00 03/01/19 09:15 Flush - Normal Saline IVF Not Given Q12HR MARK Sodium Chloride 10 ml 02/27/19 03:41 02/27/19 03:58 Flush - Normal Saline IVF 10 ml PRN PRN Administration Saline Flush - Exam NAD (on Heparin drip) Heart: RRR, no rubs Respiratory: CTAB, no rales Gastrointestinal: soft, non-tender, normal bowel sounds Extremities: no edema Neurological: no new deficit Psychiatric: A&O x 3 Hosp A/P (1) Acute mesenteric ischemia Code(s): K55.059 - ACUTE ISCHEMIA OF INTESTINE, PART AND EXTENT UNSPECIFIED Status: Suspected (2) Thoracic compression fracture Code(s): S22.000A - WEDGE COMPRESSION FRACTURE OF UNSP THORACIC VERTEBRA, INIT Status: Acute Qualifiers: Thoracic vertebra fracture level: T11 (3) Chronic atrial fibrillation Code(s): I48.2 - CHRONIC ATRIAL FIBRILLATION Status: Chronic (4) HLD (hyperlipidemia) Code(s): E78.5 - HYPERLIPIDEMIA, UNSPECIFIED Status: Chronic (5) HTN (hypertension) Code(s): I10 - ESSENTIAL (PRIMARY) HYPERTENSION Status: Chronic - Plan plan discussed w/ family, PT/OT, out of bed/ambulate Reduce IVF to 50 ml/hr Cont Digoxin Cont current pain meds Add Colace Cont Clear liqd diet Consult GI Cont other meds as below
[2019-03-01] MEDS: Ibuprofen 200 MG TAB PO SCH ×2 (15:00→21:47)
--- NOTE | 2019-03-01 15:12 | PRG ---
DATE OF SERVICE: 03/01/2019 SUBJECTIVE: Ms. Mae is an 88-year-old woman, comes in for evaluation of nausea and vomiting and abdominal pain. The patient was diagnosed with ischemic colitis and treated with heparin drip. The patient also had history of fall at home and she complains of the left flank pain. The patient is doing better today. Her vitals are stable. Her shortness of breath is getting better. She is able to carry on with full sentence conversation. She developed no fever. She made good urine. She is able to tolerate regular diet. Abdominal pain has subsided. OBJECTIVE: VITAL SIGNS: Temperature 98, pulse 81, blood pressure 150/68, O2 saturation 99% on 2 L cannula. GENERAL: The patient is alert, awake, oriented x3, in no obvious acute distress. LUNGS: Breath sounds are clear bilaterally. HEART: Irregular rate and rhythm. ABDOMEN: Soft, mild distended, mild tender to palpation with no rebound. Left flank rib steam box tender to touch. No bruising. EXTREMITIES: 2+ radial and pedal pulses bilaterally. No ankle edema. NEUROLOGIC: No focal neurology deficits. IMPRESSION: 1. Acute ischemic colitis with no clinical evidence of bowel necrosis. 2. Acute hypokalemia. 3. Acute hypomagnesemia. 4. Acute pulmonary insufficiency, resolved. PLAN: Continue supportive care. Continue DVT and gastrointestinal prophylaxis. Correct electrolyte abnormality. Recheck electrolye and CBC with manual differentiation tomorrow . Continue serial abdominal examination. Do watch out for bowel necrosis. The patient was seen and discussed with Dr. Quiros this morning on rounds. Job ID: [id number] [facility]
[2019-03-01] MEDS: Morphine 4 MG/ML VIAL SLOW IVP PRN ×2 (16:22→20:31)
[2019-03-01] MEDS ORDERED: PHOS-NAK 1 PKT PACK PO SCH (17:30)
[2019-03-01] MEDS: Montelukast Sodium 10 mg Tablet PO SCH (20:38)
[2019-03-01] MEDS: Atorvastatin Calcium 40 MG TAB PO SCH (20:38)
[2019-03-01] MEDS: Docusate 100 MG CAP PO SCH (20:38)
[2019-03-01] MEDS: Digoxin 0.25 MG TAB PO SCH (20:39)
[2019-03-02] MEDS ORDERED: traMADol HCl 50 MG TAB PO PRN ×2 (00:16)
--- NOTE | 2019-03-02 00:21 | CON ---
DATE OF CONSULTATION: 03/01/2019 REASON FOR CONSULTATION: Nausea, abdominal pain, and concern for mesenteric ischemia. CONSULTING PHYSICIAN: Fortunato Jenkins MD. HISTORY OF PRESENT ILLNESS: The patient is an 88-year-old female with past medical history of atrial fibrillation, hypertension, hyperlipidemia, and prior syncopal episodes, presenting with complaints of nausea and abdominal pain. She states that she was in her usual state of health until 02/26/2019, when she woke up at 1:20 am with the sensation of "not feeling well" that was characterized more by nauseated feeling than anything else. It prompted her to ambulate to the bathroom and upon entering to the bathroom, she states that she lost consciousness and does not remember falling. She was unconscious for an undetermined amount of time. When she woke, she was sitting down on the floor and was at that point experiencing increased right flank/right back pain that was characterized as "just pain", nonradiating, constant and reached a severity of 10/10. She was helped back to bed by her grandson and later that morning began having the acute onset of increased periumbilical/left-sided abdominal pain, again characterized as "just pain" generalized to the entire abdomen, constant and reached a severity of 8-10/10. The anterior abdominal pain was worse with increased physical activity and pressure to the abdomen, but did not have any clear alleviating factors. With the increase in her abdominal pain, it prompted her to seek healthcare assistance at the [facility], where she was evaluated and ultimately transferred to [facility] for further evaluation. 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 Over the last few days, she states that she has been doing better with resolution of her abdominal pain, although she does continue to have right flank/right mid/lower back pain. Currently, she denies any nausea, vomiting, fevers, chills, hematemesis, melena, hematochezia, dysphagia, odynophagia, diarrhea, or constipation. She has had approximately 1 bowel movement over the last week and none during this admission. REVIEW OF SYSTEMS: A 10-category review of systems was obtained with all responses negative except for the pertinent positives as listed in HPI. PAST MEDICAL HISTORY: As per HPI. PAST SURGICAL HISTORY: Appendectomy and hysterectomy. FAMILY HISTORY: Denies any GI malignancies, although she has a younger sister with colonic polyps (not high grade). SOCIAL HISTORY: Denies any tobacco, alcohol, or illicit drug use. OUTPATIENT MEDICATIONS: 1. Cholecalciferol 1000 units daily. 2. Digoxin 250 mcg daily. 3. Hydralazine 50 mg twice daily. 4. Losartan 100 mg daily. 5. Montelukast 10 mg daily. 6. Simvastatin 80 mg at bedtime. 7. MiraLAX twice daily as needed. ALLERGIES: NO KNOWN DRUG ALLERGIES. PHYSICAL EXAMINATION: VITAL SIGNS: Temperature 98.5, pulse 84, blood pressure 142/59, respiratory rate 28, saturating 98% on 2 L nasal cannula. GENERAL: The patient was sitting at bedside in a chair, in no acute distress. Alert and oriented x4. HEENT: Normocephalic, atraumatic. NECK: Supple. No JVD or scleral icterus noted. CARDIOVASCULAR: Irregularly irregular rhythm with no discernible murmurs, gallops, or rubs. Although evaluation was limited due to the presence of spine brace. RESPIRATORY: Clear to auscultation bilaterally with no discernible wheezes or rales. ABDOMEN: Unable to perform an abdominal exam at this time due to the presence of the clamshell brace. EXTREMITIES: No cyanosis, clubbing, or edema. LABORATORY DATA: CBC with a white blood cell count of 7.6, hemoglobin 9.8, hematocrit 28.8, platelets 156. PTT 76.2. Chemistry with a sodium of 135, potassium 3.5, chloride 102, CO2 of 26, BUN 23, creatinine 1.02, glucose 116, AST 15, ALT 12, alkaline phosphatase 45, total bilirubin 0.8, albumin 2.9. BNP 215. 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 There was also mild narrowing involving the origin of the celiac artery. 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 There was also suspected acute compression fracture of T11, in addition to marked cardiomegaly, a small hiatal hernia and diverticulosis without diverticulitis. There was no mention of colonic wall thickening on the CT exam. ASSESSMENT AND PLAN: The patient is an 88-year-old female with past medical history of atrial fibrillation, hypertension, hyperlipidemia, and prior syncopal events, presenting with acute arterial mesenteric ischemia. Mesenteric ischemia: The patient is presenting with a recent history of acute onset of nauseated sensation as well as increased generalized abdominal pain, but would primarily hear within the periumbilical and left-sided region. 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 At this time given the acute onset of her abdominal pain, location of her abdominal pain, presence of the narrowing on her CT scan, and the character of her pain, it is most consistent with mesenteric ischemia with arterial etiology (venous etiology would have more of insidious onset). RECOMMENDATIONS: 1. Would continue with anticoagulation as you are doing given the likelihood of arterial mesenteric ischemia in light of atrial fibrillation and a possible thromboembolic event precipitating her mesenteric ischemia. 2. Would attempt to maintain normotensive pressures during this admission to avoid decreased blood flow to her gut again secondary to narrowing of the celiac and SMA arteries. 3. Given the lack of colonic wall thickening, diarrhea, or hematochezia during this admission, the likelihood of ischemic colitis is much less, making the prophylactic administration of antibiotics less likely to be needed. 4. Would consider endovascular evaluation for the narrowing of her celiac and SMA arteries. 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 5. Pain control per primary team. 6. Would continue clear liquid diet over the next 12 to 24 hours, but would refrain from giving the patient any red items. Then advance diet as tolerated to full liquid over the next 24 to 48 hours and possible soft/bland diet from then with monitoring for increased abdominal pain. 7. Would avoid any NSAIDs given the propensity to cause irritation of the GI tract and possible precipitate GI bleed. We will sign off at this time as a colonoscopy would theoretically decrease her blood pressure due to sedation and further exacerbate her mesenteric ischemia or any ischemic type event. We will consider colonoscopy as an outpatient once stabilization of her current clinical status has been established. Please call with any additional questions. Job ID: [id number] [facility] [place]
[2019-03-02] MEDS: Piperacillin/Tazobactam 3.375 GM in Sodium Chloride 0.9% 100 ML IVPB SCH ×4 (00:50→17:40)
[2019-03-02] MEDS: Morphine 2 MG/ML SYRINGE SLOW IVP PRN ×5 (00:54→22:27)
--- NOTE | 2019-03-02 01:21 | PRG ---
DATE OF SERVICE: 03/02/2019 SUBJECTIVE: The patient remains in the IMCU. The patient has been started on a diet today. Currently, she is tolerating this without difficulty. Decreased the narcotic use and transitioned her to primarily nonnarcotic pain medications. We are currently again monitoring her for bowel necrosis. OBJECTIVE: VITAL SIGNS: Stable. Patient remains afebrile. GENERAL: The patient is resting comfortably in bed. She appears in no distress. She is currently not requiring any assistance with BiPAP, oxygen saturation is 98% on 2 L via nasal cannula. ASSESSMENT: Hospital admission for acute ischemic colitis with no clinical evidence of bowel necrosis currently. PLAN: Continue supportive care, IV heparin. Repeat exam in the morning and continue to encourage physical and occupational therapy. Job ID: [id number]
[2019-03-02 03:25] LABS: Band 1 % (5-11); Eosinophils 5 % (0-10); Hemoglobin 10.7 g/dL (12.0-16.0); Lymphocytes 19 % (21-51); MDiff Complete? YES; Mean Corpuscular HGB CONC 33.3 g/dL (32.0-36.0); Mean Corpuscular Hemoglobin 31.5 pg (27.0-31.0); Mean Corpuscular Volume 94.7 fL (78.0-98.0); Mean Platelet Volume 8.3 fL (7.4-10.4); Monocytes 10 % (0-10); Neutrophil 65 % (42-75); Platelet Count 176 thou/uL (130-400); Platelet Morphology Comment Appears Adequate; RBC Distribution Width 11.9 % (11.5-14.5); White Blood Cell (WBC) Count 8.7 thou/uL (4.8-10.8)
[2019-03-02 03:28] LABS: Anion Gap 11 mmol/L (10-20); BUN (Urea Nitrogen) 17 mg/dL (9.8-20.1); Calc. Creatinine Clearance 41 mL/min (70-130); Calcium 9.3 mg/dL (7.8-10.44); Carbon Dioxide 29 mmol/L (23-31); Chloride 104 mmol/L (98-107); Estimated GFR-MDRD 63; Glucose 104 mg/dL (83-110); Magnesium 1.8 mg/dL (1.6-2.6); Phosphorus 3.4 mg/dL (2.3-4.7); Potassium 3.9 mmol/L (3.5-5.1); Sodium 140 mmol/L (136-145)
[2019-03-02] MEDS: Heparin 10,000 UNITS/ 10 ML VIAL SLOW IVP SCH (04:13)
[2019-03-02] MEDS: Heparin 25,000 units/D5W 500 ML IVPB SCH (05:59)
[2019-03-02] MEDS: Dextrose 5%-Lactated Ringers 1,000 ML IV SCH (05:59)
[2019-03-02] MEDS: Albuterol Sulfate 1.25 MG/3 ML NEB NEB SCH ×4 (07:29→23:20)
[2019-03-02] MEDS ORDERED: Furosemide 20 MG/2 ML VIAL SLOW IVP SCH (09:30)
[2019-03-02] MEDS: Ibuprofen 200 MG TAB PO SCH ×3 (09:35→22:30)
[2019-03-02] MEDS: Amlodipine 10 MG TAB PO SCH (09:36)
[2019-03-02] MEDS: Acetaminophen 500 MG TAB PO SCH ×3 (09:36→20:57)
[2019-03-02] MEDS: Saccharomyces boulardii 250 MG CAP PO SCH (09:36)
[2019-03-02] MEDS: Polyethylene Glycol 3350 17 GM Packet PO SCH (09:36)
[2019-03-02] MEDS: Gabapentin 100 MG CAP PO SCH ×3 (09:36→20:53)
[2019-03-02] MEDS: Docusate 100 MG CAP PO SCH ×2 (09:36→20:56)
[2019-03-02] MEDS: Losartan 25 MG TAB PO SCH (09:36)
[2019-03-02] MEDS: Senokot S 8.6-50 MG TAB PO SCH ×2 (09:37→20:57)
--- NOTE | 2019-03-02 10:35 | CON ---
DATE OF CONSULTATION: 03/02/2019 REASON FOR CONSULTATION: Chronic atrial fibrillation. HISTORY OF PRESENT ILLNESS: Ms. Mae is a very pleasant 88-year-old white female, who comes to the hospital for abdominal pain. She was at home when not feeling well, woke up at 1:30 a.m. the night of the admission and she passed out in her bathroom. When she woke up, she had severe abdominal pain. She was brought to the ER and is being evaluated for possible mesenteric ischemia. She has a history of chronic atrial fibrillation, which she has had for at least the last [address] Flores in the distant past about 2 years ago. That is the only time she has seen him and has not followed up with him. At that time, she was given a prescription for a blood thinner. She states she took that prescription to her inventory specialist that she has retina specialist, sounds like in [place], who sees her for macular degeneration and the inventory specialist told her that he recommended against being on a blood thinner as she would undoubtedly bleed into her retina and lose her revision. She was recommended to be on an aspirin. She has been taking an aspirin every day. Currently, the concern is that she developed a blood clot in her heart and this was dislodged and embolized to the gut. Cardiology is being consulted to give recommendations as far as stroke and cardiac embolism prophylaxis. PAST MEDICAL HISTORY: 1. Chronic atrial fibrillation. 2. Hypertension. 3. Hyperlipidemia. 4. Macular degeneration. SURGICAL HISTORY: 1. Appendectomy. 2. Hysterectomy. SOCIAL HISTORY: No alcohol, tobacco, or drugs. FAMILY HISTORY: No early coronary artery disease. OUTPATIENT MEDICATIONS: Include, 1. Cholecalciferol 1000 units daily. 2. Digoxin 250 mcg a day. 3. Hydralazine 50 mg twice a day. 4. Losartan 100 mg a day. 5. Montelukast 10 mg a day. 6. Simvastatin 80 mg at bedtime. 7. MiraLAX as needed. 8. Aspirin 81 a day. ALLERGIES: NO KNOWN DRUG ALLERGIES. REVIEW OF SYSTEMS: A 12-point review of systems was done and was all negative unless stated in the history of present illness. PHYSICAL EXAMINATION: VITAL SIGNS: Temperature 97.9, pulse 72, respiratory rate 20, saturations 98% on 2 L nasal cannula, blood pressure 134/57. GENERAL: Awake, alert, and oriented x3. No distress. HEENT: Normocephalic, atraumatic. NECK: Supple. LUNGS: Clear to auscultation. CARDIOVASCULAR: Irregularly regular. Heart rate in the 80s. There is a grade 3/6 systolic murmur at the right upper sternal border. ABDOMEN: Soft. Positive bowel sounds. EXTREMITIES: No edema. SKIN: Warm and dry. LABORATORY DATA: Reviewed. CBC with a white count of 8, hemoglobin of 10.7, hematocrit 32, platelet count of 176. Coags were reviewed. She is currently on heparin drip. Chemistry was reviewed. Troponin has been in the indeterminate range at 0.01, 0.04, 0.12. BNP was 215. Digoxin level was low. Echocardiogram performed on the showed an EF of 60% to 65% with dilated left atrium and right atrium, moderate mitral regurgitation. ASSESSMENT: 1. Chronic atrial fibrillation. 2. Concern for ischemic colitis. 3. High risk for bleeding into the retina from her report. We will try to contact her retina specialist in [place]. PLAN: 1. Currently, she is not interested in being on any anticoagulation given the risk to her eyes. 2. We will try to get a hold of her retina specialists. I have to talk with Monse, her sister first to try to get the name of the retina specialist, her number is [phone]. We will call her today and try to figure this out, try to talk to her retina specialist. 3. If anticoagulation is not a choice, then she would be a candidate for Lariat or a Watchman device. I would lean more toward the Watchman device, as it is a little less invasive than the Lariat, and she probably can at least tolerate three months of anticoagulation, but we will discuss with the retina specialist. Thank you for letting us to participate in the care of your patient. We will follow. Job ID: [id number]
--- NOTE | 2019-03-02 12:17 | PRG ---
DATE OF SERVICE: 03/02/2019 SUBJECTIVE: Ms. Mae is an 88-year-old woman with recent diagnosis of acute ischemic colitis. The patient is on heparin continuous infusion and now therapeutic. She reports no abdominal pain today. She reports significant improvement with right lateral chest wall pain post-fall. She is passing flatus, but has not had any bowel movement. She denies any fevers or chills. OBJECTIVE: VITAL SIGNS: Today include blood pressure is 134/57, pulse is 76, respiratory rate is 19, temperature is 98.2 degrees Fahrenheit, oxygen saturation is 94% on 3 L by nasal cannula oxygen. HEART: Reveals irregular rate and irregular rhythm, though rate controlled. LUNGS: Clear to auscultation bilaterally. Breathing regular and nonlabored. ABDOMEN: Soft and moderately distended with gas. She has adequate bowel sounds in all 4 quadrants. She clearly has no abdominal tenderness to palpation. EXTREMITIES: Reveal 2+ radial and pedal pulses bilaterally. No ankle edema present. NEUROLOGIC: Reveals no focal deficits present. LABORATORY FINDINGS: Today include a CBC with 8700 white blood cells, hemoglobin and hematocrit are stable at 10.7 and 32.2 respectively. Platelet count is 176,000. Differential count as follows; 65% segmented neutrophils, 1 band, 19 lymphocytes, 10 monocytes, and 5 eosinophils. Metabolic profile; sodium 140, potassium 3.9, chloride is 104, bicarb is 29, BUN 17, creatinine 0.85, glucose 104, magnesium 1.8, and phosphorus 3.4. IMPRESSION: 1. Resolving acute ischemic colitis. 2. Acute hypokalemia. 3. Acute hypomagnesemia. PLAN: 1. Correct abnormal electrolytes. 2. Continue with clear liquid diet and start the patient on some stool softeners. 3. Increasing activity as tolerated. 4. Anticipate return of bowel function. It will not be surprised if the first bowel movement is tinged with blood. I expect the colonic mucosa to slough off. 5. Above findings have been discussed with the patient, who indicates understanding of information given. Job ID: [id number]
[2019-03-02] MEDS: Atorvastatin Calcium 40 MG TAB PO SCH (20:53)
[2019-03-02] MEDS: Montelukast Sodium 10 mg Tablet PO SCH (20:56)
[2019-03-02] MEDS: Digoxin 0.125 MG TAB PO SCH (20:56)
--- NOTE | 2019-03-02 22:43 | PDOC.HOSPP ---
- Subjective Subjective: Patient seen and examined for Abd pain/Mesenteric ischemia. No CP/Abd pain. No N /V. No new complaints. No overnight events - Objective Vital Signs & Weight: Vital Signs (12 hours) Temp Pulse Resp Pulse Ox 03/02/19 20:56 82 03/02/19 20:00 96 03/02/19 19:22 98.0 F 03/02/19 18:37 70 20 97 03/02/19 15:26 98.1 F 03/02/19 13:21 70 18 97 Weight Admit Weight 110 lb 3.2 oz Weight 125 lb Most Recent Monitor Data Heart Rate from ECG 80 NIBP 173/79 NIBP BP-Mean 110 Respiration from ECG 19 SpO2 95 I&O: 03/01/19 03/02/19 03/03/19 06:59 06:59 06:59 Intake Total 3045 3014 1400 Output Total 1900 2000 900 Balance 1145 1014 500 Result Diagrams: 03/03/19 05:22 03/03/19 05:22 EKG Reviewed by me: Yes (Tele Afib) ROS - Review of Systems All systems: All other ROS were reviewed and found negative. Respiratory: denies: cough, dry, shortness of breath, hemoptysis, SOB with excertion, pleuritic pain, sputum, wheezing, other Cardiovascular: denies: chest pain, palpitations, orthopnea, paroxysmal noc. dyspnea, edema, light headedness, other Gastrointestinal: denies: nausea, vomitting, abdominal pain, diarrhea, constipation, melena, hematochezia, other - Medication Medications: Active Medications Generic Name Dose Route Start Last Admin Trade Name Shanna PRN Reason Stop Dose Admin Acetaminophen 1,000 mg 03/01/19 09:00 03/02/19 20:57 Tylenol PO Not Given TID MARK Albuterol Sulfate 1.25 mg 02/28/19 13:00 03/02/19 18:37 Albuterol Sulfate NEB 1.25 mg [id number] MARK Administration Amlodipine Besylate 10 mg 02/28/19 09:00 03/02/19 09:36 Norvasc PO 10 mg DAILY MARK Administration Atorvastatin Calcium 40 mg 02/27/19 21:00 03/02/19 20:53 Lipitor PO 40 mg HS MARK Administration Cholecalciferol 1,000 units 02/28/19 21:00 03/02/19 20:57 Vitamin D3 PO Not Given HS MARK Digoxin 0.125 mg 03/02/19 21:00 03/02/19 20:56 Lanoxin PO 0.125 mg HS MARK Administration Docusate Sodium 100 mg 03/01/19 21:00 03/02/19 20:56 Colace PO Not Given BID MARK Gabapentin 100 mg 02/28/19 15:00 03/02/19 20:53 Neurontin PO 100 mg TID MARK Administration Heparin Sodium (Porcine) 0 units 02/27/19 11:15 03/02/19 04:13 Heparin 1,000 Units/Ml (10 Ml) SLOW IVP 1,724 units ASDIR MARK Administration Protocol Hydralazine HCl 10 mg 02/27/19 18:45 02/28/19 03:31 Apresoline SLOW IVP 10 mg Q4H PRN Administration Hypertension Heparin Sodium/Dextrose 500 mls @ 0 mls/hr 02/27/19 11:15 03/02/19 05:59 Heparin 25,000 Units/D5w 500 Ml IVPB 500 mls INF MARK Administration Protocol Per Protocol Piperacillin Sod/Tazobactam 100 mls @ 200 mls/hr 02/28/19 18:00 03/02/19 17: 40 Sod 3.375 gm/ Sodium Chloride IVPB 100 mls Q6HR MARK Administration Dextrose/Lactated Ringer's 1,000 mls @ 50 mls/hr 03/01/19 14:42 03/02/19 05: 59 D5 Lr IV 1,000 mls .Q20H MARK Administration Ibuprofen 400 mg 03/01/19 14:00 03/02/19 22:30 Motrin PO Not Given Q8HR MARK Losartan Potassium 100 mg 02/28/19 09:00 03/02/19 09:36 Cozaar PO 100 mg DAILY MARK Administration Montelukast Sodium 10 mg 02/27/19 21:00 03/02/19 20:56 Singulair PO 10 mg HS MARK Administration Morphine Sulfate 2 mg 03/02/19 00:16 03/02/19 22:27 Morphine SLOW IVP 2 mg Q4H PRN Administration Breakthrough Pain Polyethylene Glycol 17 gm 03/02/19 09:00 03/02/19 09:36 Miralax PO 17 gm DAILY MARK Administration Senna/Docusate Sodium 1 tab 03/02/19 09:00 03/02/19 20:57 Senokot S PO Not Given BID MARK Sodium Chloride 10 ml 02/27/19 09:00 03/02/19 20:57 Flush - Normal Saline IVF 10 ml Q12HR MARK Administration Sodium Chloride 10 ml 02/27/19 03:41 02/27/19 03:58 Flush - Normal Saline IVF 10 ml PRN PRN Administration Saline Flush - Exam NAD Heart: no gallops, no rubs, irregular Respiratory: CTAB, no rales Gastrointestinal: soft, non-distended, normal bowel sounds Extremities: no edema Hosp A/P (1) Acute mesenteric ischemia Code(s): K55.059 - ACUTE ISCHEMIA OF INTESTINE, PART AND EXTENT UNSPECIFIED Status: Acute (2) Thoracic compression fracture Code(s): S22.000A - WEDGE COMPRESSION FRACTURE OF UNSP THORACIC VERTEBRA, INIT Status: Acute Qualifiers: Thoracic vertebra fracture level: T11 (3) Chronic atrial fibrillation Code(s): I48.2 - CHRONIC ATRIAL FIBRILLATION Status: Chronic (4) HLD (hyperlipidemia) Code(s): E78.5 - HYPERLIPIDEMIA, UNSPECIFIED Status: Chronic (5) HTN (hypertension) Code(s): I10 - ESSENTIAL (PRIMARY) HYPERTENSION Status: Chronic (6) Other issues per previous notes - Plan On Heparin drip Probably will need ferry terminal agent anticoag Cont current IVF Cont Digoxin Cont current diet Cont other meds as below AM labs
--- NOTE | 2019-03-02 23:12 | PRG ---
DATE OF SERVICE: 03/02/2019 SUBJECTIVE: The patient remains in IMCU. The patient resting comfortably. The patient continues to tolerate a full liquid diet per night nurse. OBJECTIVE: VITAL SIGNS: The patient remains afebrile and stable vital signs. GENERAL: The patient is resting comfortably in bed. The patient appears in no distress. The patient currently is not requiring any assistance with BiPAP, SpO2 of 96% on 2 L nasal cannula. ASSESSMENT: Hospital admission for acute ischemic colitis with no clinical evidence of bowel necrosis currently. PLAN: Continue supportive care and IV heparin. Job ID: [id number] [facility]
[2019-03-03] MEDS: Piperacillin/Tazobactam 3.375 GM in Sodium Chloride 0.9% 100 ML IVPB SCH ×5 (00:48→23:23)
[2019-03-03] MEDS: Morphine 2 MG/ML SYRINGE SLOW IVP PRN ×2 (02:44→06:23)
[2019-03-03 05:45] LABS: #Basophils 0.1 thou/uL (0.0-0.2); #Eosinphils 0.3 thou/uL (0.0-0.7); #Lymphocytes 1.9 thou/uL (1.20-3.40); #Monocytes 0.9 thou/uL (0.11-0.59); #Neutrophils 7.1 thou/uL (1.40-6.50); %Basophils 0.6 % (0.0-1.0); %Eosinophils 2.5 % (0.0-10.0); %Lymphocytes 18.4 % (21.0-51.0); %Neutrophils 69.6 % (42.0-75.0); Hemoglobin 11.6 g/dL (12.0-16.0); Mean Corpuscular HGB CONC 32.8 g/dL (32.0-36.0); Mean Corpuscular Hemoglobin 30.9 pg (27.0-31.0); Mean Corpuscular Volume 94.3 fL (78.0-98.0); Mean Platelet Volume 8.1 fL (7.4-10.4); Platelet Count 216 thou/uL (130-400); RBC Distribution Width 11.9 % (11.5-14.5); Red Blood Cell (RBC) Count 3.75 mill/uL (4.20-5.40); White Blood Cell (WBC) Count 10.2 thou/uL (4.8-10.8)
[2019-03-03 06:04] LABS: Anion Gap 14 mmol/L (10-20); BUN (Urea Nitrogen) 14 mg/dL (9.8-20.1); Calc. Creatinine Clearance 45 mL/min (70-130); Calcium 9.7 mg/dL (7.8-10.44); Carbon Dioxide 26 mmol/L (23-31); Chloride 101 mmol/L (98-107); Estimated GFR-MDRD 70; Glucose 110 mg/dL (83-110); Magnesium 1.6 mg/dL (1.6-2.6); Phosphorus 3.6 mg/dL (2.3-4.7); Potassium 3.5 mmol/L (3.5-5.1); Sodium 137 mmol/L (136-145)
[2019-03-03] MEDS: Ibuprofen 200 MG TAB PO SCH ×2 (06:21→11:53)
[2019-03-03] MEDS: Dextrose 5%-Lactated Ringers 1,000 ML IV SCH (06:22)
[2019-03-03] MEDS: Albuterol Sulfate 1.25 MG/3 ML NEB NEB SCH ×3 (07:15→19:44)
[2019-03-03] MEDS ORDERED: Magnesium Sulfate 3 GM in Sodium Chloride 0.9% 250 ML 250 ML IVPB SCH (08:30)
[2019-03-03] MEDS ORDERED: Potassium Chloride 20 MEQ in Premix Bag 1 BAG IVPB SCH (08:30)
[2019-03-03] MEDS: HYDROcodone/Acetaminophen 5/325 mg Tablet PO PRN ×2 (10:08→13:55)
[2019-03-03] MEDS: Amlodipine 10 MG TAB PO SCH (10:23)
[2019-03-03] MEDS: Acetaminophen 500 MG TAB PO SCH ×2 (10:24→15:33)
[2019-03-03] MEDS: Saccharomyces boulardii 250 MG CAP PO SCH (10:24)
[2019-03-03] MEDS: Gabapentin 100 MG CAP PO SCH (10:24)
[2019-03-03] MEDS: Losartan 25 MG TAB PO SCH (10:28)
[2019-03-03] MEDS: Polyethylene Glycol 3350 17 GM Packet PO SCH (10:40)
[2019-03-03] MEDS: Senokot S 8.6-50 MG TAB PO SCH ×2 (10:40→21:15)
[2019-03-03] MEDS: Docusate 100 MG CAP PO SCH (10:40)
[2019-03-03] MEDS: cloNIDine 0.1 MG TAB PO SCH ×3 (12:10→23:28)
--- NOTE | 2019-03-03 12:34 | PDOC.CTH ---
Cardiology Progress Note - Subjective She is doing well. No new issues. - Objective Vital Signs Temp Pulse Resp BP Pulse Ox 03/03/19 12:10 223/96 H 03/03/19 10:48 98.6 F 03/03/19 10:23 110 H 181/83 H 03/03/19 07:44 96 03/03/19 07:15 97.8 F 88 26 H 96 03/03/19 03:47 99.4 F Admit Weight 110 lb 3.2 oz Weight 130 lb 03/02/19 03/03/19 03/04/19 06:59 06:59 06:59 Intake Total 3014 2904 Output Total 1999 1300 Balance 1014 1604 - Physical Examination General/Neuro: alert & oriented x3, NAD Neck: no JVD present Lungs: CTA, unlabored respirations Heart: RRR Abdomen: NT/ND Extremities: other: (no edema) - Telemetry Telemetry Rhythm: Afib HR 60's. - Labs Result Diagrams: 03/03/19 05:22 03/03/19 05:22 Troponin/CKMB Troponin I 0.120 ng/mL (< 0.028) H 02/28/19 10:36 - Assessment/Plan 1. Chronic afib, rate controlled. 2. Abdominal pain. 3. Bilateral renal artery stenosis. 4. HTN 5. Glaucoma 6. Syncope. PLAN: - I spoke with patients appian bpm developer and she has treated her mostly for glaucoma in the past and she feels there is no contraindication to anticoagulation with her eye condition. - Currently on a heparin drip but would switch to Eliquis 5 mg BID on discharge. - Continue current meds for rate control. - No tachy or [place] arrhythmias other than her afib which has been rate controlled. Will need a 30 day monitor after discharge and eventually a LINQ if her syncope recurs. Her episode was related to nausea and abdominal pain as well as standing up and heading to the bathroom so may have been vasovagal episode.
[2019-03-03] MEDS: Gabapentin 300 MG CAP PO SCH ×2 (14:01→21:15)
[2019-03-03] MEDS ORDERED: Acetaminophen 325 MG TAB PO PRN (15:26)
[2019-03-03] MEDS: Heparin 25,000 units/D5W 500 ML IVPB SCH (16:43)
--- NOTE | 2019-03-03 16:48 | PRG ---
DATE OF SERVICE: 03/03/2019 SUBJECTIVE: Ms. Mae is 88-year-old woman, who was admitted five days previously with abdominal pain following a ground level fall, where she struck the right side of the body. The patient was started on heparin by continuous infusion. Abdominal pain is resolved. The patient is complaining of residual right lateral chest wall pain, which is managed with oral analgesics. She tolerated a clear liquid diet. She has had multiple loose bowel movements over the last 24 hours. Urinary output has been adequate. OBJECTIVE: VITAL SIGNS: Currently include blood pressure 131/56, pulse is 77, respiratory rate is 18, maximum temperature in last 24 hours is 99.4 degrees Fahrenheit, and oxygen saturation is 94% on 4 L by nasal cannula oxygen. HEART: Reveals irregular rate and irregular rhythm, rate controlled. LUNGS: Clear to auscultation bilaterally. Breathing, regular and nonlabored. ABDOMEN: Soft, moderately distended, but nontender to palpation. Bowel sounds in all 4 quadrants appear normoactive. She clearly has no peritoneal signs on examination. NEUROLOGIC: Reveals no focal deficits present. LABORATORY FINDINGS: Today includes a CBC with 10,200 white blood cells, hemoglobin and hematocrit 11.6 and 35.4 respectively. The platelet count is 216,000. Metabolic profile; sodium 137, potassium 3.5, chloride is 101, bicarb is 26, BUN 14, creatinine 0.78, glucose is 110, magnesium 1.6, and phosphorus is 3.6. IMPRESSIONS: 1. Resolving acute ischemic colitis. 2. Posttraumatic pain syndrome. 3. Acute hypokalemia. 4. Acute hypomagnesemia. PLAN: 1. Correct abnormal electrolytes. 2. Increase activity and advance diet. 3. There remains no acute surgical indication for this patient at this time. 4. Recommend the patient may start oral anticoagulation. Above findings and plan discussed with the patient and she indicated understanding of information given. I have answered her questions. Job ID: [id number]
--- NOTE | 2019-03-03 20:28 | PDOC.HOSPP ---
- Subjective Subjective: Patient seen and examined for ischemic colitis. No abd pain. Had loose watery BM earlier. No CP. No new complaints. No overnight events - Objective Vital Signs & Weight: Vital Signs (12 hours) Temp Pulse Resp BP Pulse Ox 03/03/19 19:44 67 18 99 03/03/19 19:41 98.6 F 03/03/19 18:28 151/64 H 03/03/19 16:00 96 03/03/19 14:58 97.3 F L 03/03/19 14:24 105 H 28 H 94 L 03/03/19 12:10 223/96 H 03/03/19 12:00 91 L 03/03/19 10:48 98.6 F 03/03/19 10:23 110 H 181/83 H Weight Admit Weight 110 lb 3.2 oz Weight 130 lb Most Recent Monitor Data Heart Rate from ECG 84 NIBP 151/64 NIBP BP-Mean 93 Respiration from ECG 28 SpO2 95 I&O: 03/02/19 03/03/19 03/04/19 06:59 06:59 06:59 Intake Total 3014 2904 1635 Output Total 1999 1300 150 Balance 1014 1604 1485 Result Diagrams: 03/03/19 05:22 03/03/19 05:22 EKG Reviewed by me: Yes (Tele Afib) ROS - Review of Systems All systems: All other ROS were reviewed and found negative. Respiratory: denies: cough, dry, shortness of breath, hemoptysis, SOB with excertion, pleuritic pain, sputum, wheezing, other Cardiovascular: denies: chest pain, palpitations, orthopnea, paroxysmal noc. dyspnea, edema, light headedness, other - Medication Medications: Active Medications Generic Name Dose Route Start Last Admin Trade Name Freq PRN Reason Stop Dose Admin Hydrocodone Bitart/Acetaminophen 2 tab 03/03/19 09:15 03/03/19 13:55 [place] 5/325 PO 2 tab Q4H PRN Administration Severe Pain (7-10) Albuterol Sulfate 1.25 mg 02/28/19 13:00 03/03/19 19:44 Albuterol Sulfate NEB 1.25 mg [id number] MARK Administration Amlodipine Besylate 10 mg 02/28/19 09:00 03/03/19 10:23 Norvasc PO 10 mg DAILY MARK Administration Atorvastatin Calcium 40 mg 02/27/19 21:00 03/02/19 20:53 Lipitor PO 40 mg HS MARK Administration Cholecalciferol 1,000 units 02/28/19 21:00 03/02/19 20:57 Vitamin D3 PO Not Given HS MARK Clonidine 0.1 mg 03/03/19 12:00 03/03/19 18:28 Catapres PO 0.1 mg Q6HR MARK Administration Digoxin 0.125 mg 03/02/19 21:00 03/02/19 20:56 Lanoxin PO 0.125 mg HS MARK Administration Gabapentin 300 mg 03/03/19 15:00 03/03/19 14:01 Neurontin PO 300 mg TID MARK Administration Heparin Sodium (Porcine) 0 units 02/27/19 11:15 03/02/19 04:13 Heparin 1,000 Units/Ml (10 Ml) SLOW IVP 1,724 units ASDIR MARK Administration Protocol Hydralazine HCl 10 mg 02/27/19 18:45 02/28/19 03:31 Apresoline SLOW IVP 10 mg Q4H PRN Administration Hypertension Heparin Sodium/Dextrose 500 mls @ 0 mls/hr 02/27/19 11:15 03/03/19 16:43 Heparin 25,000 Units/D5w 500 Ml IVPB 500 mls INF MARK Administration Protocol Per Protocol Piperacillin Sod/Tazobactam 100 mls @ 200 mls/hr 02/28/19 18:00 03/03/19 17: 01 Sod 3.375 gm/ Sodium Chloride IVPB 100 mls Q6HR MARK Administration Dextrose/Lactated Ringer's 1,000 mls @ 50 mls/hr 03/01/19 14:42 03/03/19 06: 22 D5 Lr IV Not Given .Q20H MARK Ibuprofen 400 mg 03/01/19 14:00 03/03/19 11:53 Motrin PO 400 mg Q8HR MARK Administration Losartan Potassium 100 mg 02/28/19 09:00 03/03/19 10:28 Cozaar PO 100 mg DAILY MARK Administration Montelukast Sodium 10 mg 02/27/19 21:00 03/02/19 20:56 Singulair PO 10 mg HS MARK Administration Polyethylene Glycol 17 gm 03/02/19 09:00 03/03/19 10:40 Miralax PO Not Given DAILY AMRK Promethazine HCl 12.5 mg 02/27/19 11:19 03/03/19 11:01 Phenergan IM 12.5 mg Q4H PRN Administration Nausea/Vomiting Saccharomyces Boulardii 250 mg 03/03/19 09:00 03/03/19 10:24 Florastor PO 250 mg DAILY MARK Administration Senna/Docusate Sodium 1 tab 03/02/19 09:00 03/03/19 10:40 Senokot S PO Not Given BID MARK Sodium Chloride 10 ml 02/27/19 09:00 03/03/19 10:30 Flush - Normal Saline IVF 10 ml Q12HR MARK Administration Sodium Chloride 10 ml 02/27/19 03:41 02/27/19 03:58 Flush - Normal Saline IVF 10 ml PRN PRN Administration Saline Flush - Exam NAD Heart: no gallops, no rubs, irregular Respiratory: CTAB, no rales Gastrointestinal: soft, non-tender, normal bowel sounds Extremities: no edema Psychiatric: normal affect, A&O x 3 Hosp A/P (1) Acute mesenteric ischemia Code(s): K55.059 - ACUTE ISCHEMIA OF INTESTINE, PART AND EXTENT UNSPECIFIED Status: Acute (2) Thoracic compression fracture Code(s): S22.000A - WEDGE COMPRESSION FRACTURE OF UNSP THORACIC VERTEBRA, INIT Status: Acute Qualifiers: Thoracic vertebra fracture level: T11 (3) Chronic atrial fibrillation Code(s): I48.2 - CHRONIC ATRIAL FIBRILLATION (4) HLD (hyperlipidemia) Code(s): E78.5 - HYPERLIPIDEMIA, UNSPECIFIED (5) HTN (hypertension) Code(s): I10 - ESSENTIAL (PRIMARY) HYPERTENSION (6) Other issues per previous notes - Plan Cont Heparin drip - I d/w Dr Butcher (Rock Room Worker) - ok to cont anticoag per Ophthal Cont IVF @50 ml/hr Cont Digoxin/Amlodipine Gabapentin dose increased Cont other meds as above CBC in AM
[2019-03-03] MEDS: Atorvastatin Calcium 40 MG TAB PO SCH (21:15)
[2019-03-03] MEDS: Digoxin 0.125 MG TAB PO SCH (21:15)
[2019-03-03] MEDS: Montelukast Sodium 10 mg Tablet PO SCH (21:15)
--- NOTE | 2019-03-03 22:13 | PRG ---
DATE OF SERVICE: 03/03/2019 SUBJECTIVE: The patient remains in the IMCU, status post ground level fall. The patient remains on a heparin drip. The patient is currently sleeping comfortably, in no distress. The patient continues to tolerate a full liquid diet according to her nurse. OBJECTIVE: VITAL SIGNS: Stable, remains afebrile. GENERAL: Resting comfortably, no acute distress. RESPIRATORY: Bilateral equal chest rise and fall, breathing is regular and nonlabored. IMPRESSION: 1. Resolving acute ischemic colitis. 2. Posttraumatic pain syndrome. PLAN: Continue supportive care. Recommend the patient may start oral anticoagulation. We will discontinue ibuprofen, per cardiology recommendations. Job ID: [id number] [facility]
[2019-03-04] MEDS: Albuterol Sulfate 1.25 MG/3 ML NEB NEB SCH ×4 (00:15→19:36)
[2019-03-04] MEDS: Dextrose 5%-Lactated Ringers 1,000 ML IV SCH (01:39)
[2019-03-04] MEDS: HYDROcodone/Acetaminophen 5/325 mg Tablet PO PRN ×3 (02:26→12:53)
[2019-03-04 04:44] LABS: Band 3 % (5-11); Eosinophils 3 % (0-10); Hemoglobin 9.7 g/dL (12.0-16.0); Lymphocytes 13 % (21-51); MDiff Complete? YES; Mean Corpuscular HGB CONC 33.8 g/dL (32.0-36.0); Mean Corpuscular Hemoglobin 31.6 pg (27.0-31.0); Mean Corpuscular Volume 93.5 fL (78.0-98.0); Mean Platelet Volume 8.3 fL (7.4-10.4); Monocytes 7 % (0-10); Neutrophil 74 % (42-75); Platelet Count 193 thou/uL (130-400); Platelet Morphology Comment Appears Adequate; RBC Distribution Width 11.8 % (11.5-14.5); Red Blood Cell (RBC) Count 3.07 mill/uL (4.20-5.40); White Blood Cell (WBC) Count 7.7 thou/uL (4.8-10.8)
[2019-03-04] MEDS: cloNIDine 0.1 MG TAB PO SCH ×4 (05:12→23:01)
[2019-03-04] MEDS: Piperacillin/Tazobactam 3.375 GM in Sodium Chloride 0.9% 100 ML IVPB SCH ×4 (05:12→23:01)
[2019-03-04] MEDS ORDERED: Furosemide 40 MG/4 ML VIAL SLOW IVP SCH (08:15)
--- NOTE | 2019-03-04 08:17 | PDOC.CTH ---
Cardiology Progress Note - Subjective She is more SOB now. She is about 8L up on I/O. - Objective Vital Signs Temp Pulse Resp BP Pulse Ox 03/04/19 08:00 97.8 F 03/04/19 07:13 96 03/04/19 07:11 72 20 96 03/04/19 05:12 144/61 H 03/04/19 03:23 97.7 F 03/04/19 00:15 61 21 H 97 03/03/19 23:50 97.8 F 03/03/19 23:28 137/61 03/03/19 21:15 68 Admit Weight 110 lb 3.2 oz Weight 132 lb 12.8 oz 03/03/19 03/04/19 03/05/19 06:59 06:59 06:59 Intake Total 2904 2635 Output Total 1300 600 Balance 1604 2035 - Physical Examination General/Neuro: alert & oriented x3, NAD Neck: no JVD present Lungs: other: (Crackles at bases.) Heart: other: (Irreg irreg) Abdomen: NT/ND Extremities: + edema B (1+) - Telemetry Telemetry Rhythm: Afib HR 60's. - Labs Result Diagrams: 03/04/19 04:18 03/03/19 05:22 Troponin/CKMB Troponin I 0.120 ng/mL (< 0.028) H 02/28/19 10:36 - Assessment/Plan 1. Chronic afib, rate controlled. 2. Abdominal pain. 3. Bilateral renal artery stenosis. 4. HTN 5. Glaucoma 6. Syncope. 7. Acute on chronic diastolic CHF. PLAN: - Will give IV lasix - Will stop heparin drip and start Eliquis 2.5 mg BID due to age.
[2019-03-04] MEDS: Saccharomyces boulardii 250 MG CAP PO SCH (09:10)
[2019-03-04] MEDS: Senokot S 8.6-50 MG TAB PO SCH ×2 (09:10→20:39)
[2019-03-04] MEDS: Amlodipine 10 MG TAB PO SCH (09:10)
[2019-03-04] MEDS: Gabapentin 300 MG CAP PO SCH ×3 (09:10→20:39)
[2019-03-04] MEDS: Losartan 25 MG TAB PO SCH (09:15)
[2019-03-04] MEDS: Polyethylene Glycol 3350 17 GM Packet PO SCH (09:25)
[2019-03-04 10:31] VITALS: BMI 23.5
[2019-03-04] MEDS: Apixaban 2.5 MG TAB PO SCH ×2 (12:34→20:39)
[2019-03-04] MEDS: Furosemide 40 MG/4 ML VIAL SLOW IVP SCH (12:37)
[2019-03-04] MEDS: Acetaminophen 325 MG TAB PO SCH ×2 (15:15→20:39)
--- NOTE | 2019-03-04 18:11 | PRG ---
DATE OF SERVICE: 03/04/2019 SUBJECTIVE: The patient is hospital day 6, status post admission for abdominal pain and a ground level fall. The patient is currently being treated for back pain secondary to her fall and ischemic colitis. She has on a heparin drip at this time. Her exam continues to improve daily and her bowel function has returned. She tolerated p.o. yesterday and we are going to advance her to a regular diet today. OBJECTIVE: VITAL SIGNS: Temperature 97.8, heart rate 76, blood pressure 149/81, oxygen saturation is 97% on 3 L via nasal cannula. Respirations are 18. GENERAL: The patient is resting comfortably in bed. She appears in no distress. ABDOMEN: Soft and nontender. She has active bowel sounds and no evidence of peritonitis. LABORATORY FINDINGS: White blood cell count 7.7, hemoglobin 9.7, hematocrit 28.7, and platelets 193. ASSESSMENT: 1. Status post acute ischemic colitis. 2. Acute posttraumatic pain syndrome. PLAN: There continues to be no surgical indications for the patient at this time. She continues to progress. We recommend that she transition to oral anticoagulation and continue medical management. We will sign off at this time. Please contact us if there is a change in the patient's condition or exam. The patient was seen this morning with Dr. Quiros during rounds. Job ID: [id number]
--- NOTE | 2019-03-04 18:12 | PDOC.HOSPP ---
- Subjective Subjective: Patient seen and examined for Ischemic colitis. No Abd pain. Was SOB last night. No new complaints. No overnight events - Objective Vital Signs & Weight: Vital Signs (12 hours) Temp Pulse Resp BP Pulse Ox 03/04/19 17:31 148/63 H 03/04/19 15:15 98.0 F 03/04/19 12:56 81 16 97 03/04/19 12:37 146/74 H 03/04/19 11:41 97.4 F L 03/04/19 09:10 72 148/81 H 03/04/19 08:00 97.8 F 97 03/04/19 07:13 96 03/04/19 07:11 72 20 96 Weight Admit Weight 110 lb 3.2 oz Weight 132 lb 12.8 oz Most Recent Monitor Data Heart Rate from ECG 66 NIBP 148/63 NIBP BP-Mean 91 Respiration from ECG 16 SpO2 98 I&O: 03/03/19 03/04/19 03/05/19 06:59 06:59 06:59 Intake Total 2904 2635 Output Total 8134 918 6825 Balance 1604 2035 -1200 Result Diagrams: 03/04/19 04:18 03/03/19 05:22 EKG Reviewed by me: Yes (Tele Afib) ROS - Review of Systems All systems: All other ROS were reviewed and found negative. Respiratory: denies: cough, dry, shortness of breath, hemoptysis, SOB with excertion, pleuritic pain, sputum, wheezing, other Cardiovascular: denies: chest pain, palpitations, orthopnea, paroxysmal noc. dyspnea, edema, light headedness, other - Medication Medications: Active Medications Generic Name Dose Route Start Last Admin Trade Name Freq PRN Reason Stop Dose Admin Acetaminophen 650 mg 03/04/19 15:00 03/04/19 15:15 Tylenol PO 650 mg TID MARK Administration Hydrocodone Bitart/Acetaminophen 2 tab 03/03/19 09:15 03/04/19 12:53 [place] 5/325 PO 2 tab Q4H PRN Administration Severe Pain (7-10) Albuterol Sulfate 1.25 mg 02/28/19 13:00 03/04/19 12:56 Albuterol Sulfate NEB 1.25 mg [id number] Administration Amlodipine Besylate 10 mg 02/28/19 09:00 03/04/19 09:10 Norvasc PO 10 mg DAILY MARK Administration Apixaban 2.5 mg 03/04/19 09:00 03/04/19 12:34 Eliquis PO 2.5 mg BID MARK Administration Atorvastatin Calcium 40 mg 02/27/19 21:00 03/03/19 21:15 Lipitor PO 40 mg HS MARK Administration Cholecalciferol 1,000 units 02/28/19 21:00 03/03/19 21:15 Vitamin D3 PO 1,000 units HS MARK Administration Clonidine 0.1 mg 03/03/19 12:00 03/04/19 17:31 Catapres PO 0.1 mg Q6HR MARK Administration Digoxin 0.125 mg 03/02/19 21:00 03/03/19 21:15 Lanoxin PO 0.125 mg HS MARK Administration Furosemide 40 mg 03/04/19 14:00 03/04/19 12:37 Lasix SLOW IVP 40 mg 0600,1400 MARK Administration Gabapentin 300 mg 03/03/19 15:00 03/04/19 15:16 Neurontin PO 300 mg TID MARK Administration Heparin Sodium (Porcine) 0 units 02/27/19 11:15 03/02/19 04:13 Heparin 1,000 Units/Ml (10 Ml) SLOW IVP 1,724 units ASDIR MARK Administration Protocol Hydralazine HCl 10 mg 02/27/19 18:45 02/28/19 03:31 Apresoline SLOW IVP 10 mg Q4H PRN Administration Hypertension Piperacillin Sod/Tazobactam 100 mls @ 200 mls/hr 02/28/19 18:00 03/04/19 17: 32 Sod 3.375 gm/ Sodium Chloride IVPB 100 mls Q6HR MARK Administration Losartan Potassium 100 mg 02/28/19 09:00 03/04/19 09:15 Cozaar PO 100 mg DAILY MARK Administration Montelukast Sodium 10 mg 02/27/19 21:00 03/03/19 21:15 Singulair PO 10 mg HS MARK Administration Polyethylene Glycol 17 gm 03/02/19 09:00 03/04/19 09:25 Miralax PO 17 gm DAILY MARK Administration Promethazine HCl 12.5 mg 02/27/19 11:19 03/03/19 11:01 Phenergan IM 12.5 mg Q4H PRN Administration Nausea/Vomiting Saccharomyces Boulardii 250 mg 03/03/19 09:00 03/04/19 09:10 Florastor PO 250 mg DAILY MARK Administration Senna/Docusate Sodium 1 tab 03/02/19 09:00 03/04/19 09:10 Senokot S PO 1 tab BID MARK Administration Sodium Chloride 10 ml 02/27/19 09:00 03/04/19 12:34 Flush - Normal Saline IVF 10 ml Q12HR MARK Administration Sodium Chloride 10 ml 02/27/19 03:41 02/27/19 03:58 Flush - Normal Saline IVF 10 ml PRN PRN Administration Saline Flush - Exam NAD Heart: RRR, no rubs Respiratory: no wheezes, rales Gastrointestinal: soft, non-tender Extremities: no edema Psychiatric: normal affect, A&O x 3 Hosp A/P (1) Acute mesenteric ischemia Code(s): K55.059 - ACUTE ISCHEMIA OF INTESTINE, PART AND EXTENT UNSPECIFIED Status: Acute (2) Thoracic compression fracture Code(s): S22.000A - WEDGE COMPRESSION FRACTURE OF UNSP THORACIC VERTEBRA, INIT Status: Acute Qualifiers: Thoracic vertebra fracture level: T11 (3) Chronic atrial fibrillation Code(s): I48.2 - CHRONIC ATRIAL FIBRILLATION (4) HLD (hyperlipidemia) Code(s): E78.5 - HYPERLIPIDEMIA, UNSPECIFIED (5) HTN (hypertension) Code(s): I10 - ESSENTIAL (PRIMARY) HYPERTENSION (6) Other issues per previous notes (7) Physical deconditioning Code(s): R53.81 - OTHER MALAISE - Plan plan discussed w/ family IVF dced Started on IV Lasix and PO Eliquis SNF/Rehab eval Cont Digoxin/Amlodipine/Gabapentin Cont other meds as above AM labs DC in 24-48 hr if stable
[2019-03-04] MEDS: Montelukast Sodium 10 mg Tablet PO SCH (20:39)
[2019-03-04] MEDS: Atorvastatin Calcium 40 MG TAB PO SCH (20:39)
[2019-03-04] MEDS: Digoxin 0.125 MG TAB PO SCH (20:39)
[2019-03-05] MEDS: Albuterol Sulfate 1.25 MG/3 ML NEB NEB SCH ×4 (00:51→18:51)
[2019-03-05 05:53] LABS: #Eosinphils 0.2 thou/uL (0.0-0.7); #Lymphocytes 1.5 thou/uL (1.20-3.40); #Monocytes 0.6 thou/uL (0.11-0.59); #Neutrophils 4.4 thou/uL (1.40-6.50); %Basophils 0.6 % (0.0-1.0); %Eosinophils 3.5 % (0.0-10.0); %Lymphocytes 22.6 % (21.0-51.0); %Monocytes 8.7 % (0.0-10.0); %Neutrophils 64.6 % (42.0-75.0); Hemoglobin 10.2 g/dL (12.0-16.0); Mean Corpuscular HGB CONC 34.4 g/dL (32.0-36.0); Mean Corpuscular Hemoglobin 31.7 pg (27.0-31.0); Mean Corpuscular Volume 92.1 fL (78.0-98.0); Mean Platelet Volume 8.2 fL (7.4-10.4); Platelet Count 222 thou/uL (130-400); RBC Distribution Width 11.6 % (11.5-14.5); Red Blood Cell (RBC) Count 3.22 mill/uL (4.20-5.40); White Blood Cell (WBC) Count 6.7 thou/uL (4.8-10.8)
[2019-03-05 06:14] LABS: Anion Gap 11 mmol/L (10-20); BUN (Urea Nitrogen) 14 mg/dL (9.8-20.1); Calc. Creatinine Clearance 45 mL/min (70-130); Calcium 9.6 mg/dL (7.8-10.44); Carbon Dioxide 32 mmol/L (23-31); Chloride 99 mmol/L (98-107); Estimated GFR-MDRD 68; Glucose 97 mg/dL (83-110); Phosphorus 3.2 mg/dL (2.3-4.7); Potassium 3.1 mmol/L (3.5-5.1); Sodium 139 mmol/L (136-145)
[2019-03-05 06:32] LABS: Magnesium 1.7 mg/dL (1.6-2.6)
[2019-03-05] MEDS: Piperacillin/Tazobactam 3.375 GM in Sodium Chloride 0.9% 100 ML IVPB SCH ×4 (06:38→23:39)
[2019-03-05] MEDS: Furosemide 40 MG/4 ML VIAL SLOW IVP SCH ×2 (06:39→14:49)
[2019-03-05] MEDS: cloNIDine 0.1 MG TAB PO SCH ×4 (06:39→23:44)
[2019-03-05] MEDS ORDERED: Magnesium Sulfate 2 GM in Sodium Chloride 0.9% 100 ML IVPB SCH (08:00)
[2019-03-05] MEDS ORDERED: Potassium Chloride 10 MEQ TAB PO SCH (08:00)
[2019-03-05] MEDS: Amlodipine 10 MG TAB PO SCH (08:28)
[2019-03-05] MEDS: Apixaban 2.5 MG TAB PO SCH ×2 (08:29→20:01)
[2019-03-05] MEDS: Saccharomyces boulardii 250 MG CAP PO SCH (08:29)
[2019-03-05] MEDS: Multivit, Therapeutic 1 TAB PO SCH (08:29)
[2019-03-05] MEDS: Losartan 25 MG TAB PO SCH (08:29)
[2019-03-05] MEDS: Senokot S 8.6-50 MG TAB PO SCH (08:29)
[2019-03-05] MEDS: HYDROcodone/Acetaminophen 5/325 mg Tablet PO PRN (08:30)
[2019-03-05] MEDS: Gabapentin 300 MG CAP PO SCH ×3 (08:30→20:02)
[2019-03-05] MEDS: Acetaminophen 325 MG TAB PO SCH ×3 (08:31→20:01)
[2019-03-05] MEDS: Polyethylene Glycol 3350 17 GM Packet PO SCH (08:31)
[2019-03-05] MEDS ORDERED: Folic Acid 1 MG TAB PO SCH (09:00)
[2019-03-05] MEDS ORDERED: Cyanocobalamin (Vitamin B-12) 1,000 MCG TAB PO SCH (09:00)
[2019-03-05] MEDS: Magnesium 2 GM/50 ML 2 GM in Premix Bag 1 BAG IVPB SCH (09:41)
--- NOTE | 2019-03-05 15:33 | PDOC.CTH ---
Cardiology Progress Note - Subjective Breathing much better. - Objective Vital Signs Temp Pulse Resp BP BP BP Pulse Ox 03/05/19 13:49 70 20 92 L 03/05/19 12:00 97.9 F 70 18 150/69 H 92 L 03/05/19 11:59 150/69 H 03/05/19 08:38 93 L 03/05/19 08:28 75 148/69 H 03/05/19 07:21 98.2 F 75 18 148/69 H 92 L 03/05/19 06:54 66 22 H 95 03/05/19 06:39 170/76 H 03/05/19 04:04 98.1 F 66 16 170/76 H 95 Admit Weight 110 lb 3.2 oz Weight 130 lb 4.691 oz 03/04/19 03/05/19 03/06/19 06:59 06:59 06:59 Intake Total 2635 1540 Output Total 600 2425 Balance 2035 -885 - Physical Examination General/Neuro: alert & oriented x3, NAD Neck: no JVD present Lungs: CTA, unlabored respirations Heart: other: (irreg irreg) Abdomen: NT/ND Extremities: other: (trace edema) - Labs Result Diagrams: 03/05/19 05:23 03/05/19 05:23 Troponin/CKMB Troponin I 0.120 ng/mL (< 0.028) H 02/28/19 10:36 - Assessment/Plan 1. Chronic afib, rate controlled. 2. Abdominal pain. 3. Bilateral renal artery stenosis. 4. HTN 5. Glaucoma 6. Syncope. 7. Acute on chronic diastolic CHF. PLAN: - Switch to PO lasix tomorrow. - Tolerating Eliquis 2.5 mg BID without issues. - Replace K. - Will plan on up titration of BP meds as outpatient. - Will need 30 day monitor as an outpatient on discharge. Will set up from my office. - Will follow from a distance.
[2019-03-05] MEDS ORDERED: Potassium Chloride 20 MEQ TAB PO SCH (15:45)
[2019-03-05] MEDS: Montelukast Sodium 10 mg Tablet PO SCH (20:02)
[2019-03-05] MEDS: Atorvastatin Calcium 40 MG TAB PO SCH (20:02)
[2019-03-05] MEDS: Digoxin 0.125 MG TAB PO SCH (20:02)
--- NOTE | 2019-03-05 20:29 | PDOC.HOSPP ---
- Subjective Subjective: Patient seen and examined for ischemic colitis/T11 fracture. No CP/Abd pain. No fever. No diarrhea. No new complaints. No overnight events - Objective Vital Signs & Weight: Vital Signs (12 hours) Temp Pulse Resp BP BP Pulse Ox 03/05/19 20:02 66 03/05/19 18:51 66 16 93 L 03/05/19 17:01 146/72 H 03/05/19 15:50 97.7 F 69 20 146/72 H 92 L 03/05/19 13:49 70 20 92 L 03/05/19 12:00 97.9 F 70 18 150/69 H 92 L 03/05/19 11:59 150/69 H 03/05/19 08:38 93 L 03/05/19 08:28 75 148/69 H Weight Admit Weight 110 lb 3.2 oz Weight 130 lb 4.691 oz Most Recent Monitor Data Heart Rate from ECG 58 NIBP 143/57 NIBP BP-Mean 85 Respiration from ECG 22 SpO2 97 I&O: 03/04/19 03/05/19 03/06/19 06:59 06:59 06:59 Intake Total 2635 1540 1260 Output Total 600 2425 1200 Balance 2035 -885 60 Result Diagrams: 03/05/19 05:23 03/05/19 05:23 ROS - Review of Systems All systems: All other ROS were reviewed and found negative. Respiratory: denies: cough, dry, shortness of breath, hemoptysis, SOB with excertion, pleuritic pain, sputum, wheezing, other Cardiovascular: denies: chest pain, palpitations, orthopnea, paroxysmal noc. dyspnea, edema, light headedness, other Gastrointestinal: denies: nausea, vomitting, abdominal pain, diarrhea, constipation, melena, hematochezia, other - Medication Medications: Active Medications Generic Name Dose Route Start Last Admin Trade Name Freq PRN Reason Stop Dose Admin Acetaminophen 650 mg 03/04/19 15:00 03/05/19 20:01 Tylenol PO 650 mg TID MARK Administration Hydrocodone Bitart/Acetaminophen 1 tab 03/03/19 09:15 03/05/19 08:30 [place] 5/325 PO 1 tab Q4H PRN Administration Moderate to Severe Pain (6-10) Hydrocodone Bitart/Acetaminophen 2 tab 03/03/19 09:15 03/04/19 12:53 [place] 5/325 PO 2 tab Q4H PRN Administration Severe Pain (7-10) Albuterol Sulfate 1.25 mg 02/28/19 13:00 03/05/19 18:51 Albuterol Sulfate NEB 1.25 mg [id number] MARK Administration Amlodipine Besylate 10 mg 02/28/19 09:00 03/05/19 08:28 Norvasc PO 10 mg DAILY MARK Administration Apixaban 2.5 mg 03/04/19 09:00 03/05/19 20:01 Eliquis PO 2.5 mg BID MARK Administration Atorvastatin Calcium 40 mg 02/27/19 21:00 03/05/19 20:02 Lipitor PO 40 mg HS MARK Administration Cholecalciferol 1,000 units 02/28/19 21:00 03/05/19 20:02 Vitamin D3 PO 1,000 units HS MARK Administration Clonidine 0.1 mg 03/03/19 12:00 03/05/19 17:01 Catapres PO 0.1 mg Q6HR MARK Administration Digoxin 0.125 mg 03/02/19 21:00 03/05/19 20:02 Lanoxin PO 0.125 mg HS MARK Administration Gabapentin 300 mg 03/03/19 15:00 03/05/19 20:02 Neurontin PO 300 mg TID MARK Administration Hydralazine HCl 10 mg 02/27/19 18:45 02/28/19 03:31 Apresoline SLOW IVP 10 mg Q4H PRN Administration Hypertension Piperacillin Sod/Tazobactam 100 mls @ 200 mls/hr 02/28/19 18:00 03/05/19 17: 02 Sod 3.375 gm/ Sodium Chloride IVPB 100 mls Q6HR MARK Administration Magnesium Sulfate 2 gm/ Device 50 mls @ 50 mls/hr 03/05/19 08:30 03/05/19 09: 41 IVPB 50 mls 0830 MARK Administration Losartan Potassium 100 mg 02/28/19 09:00 03/05/19 08:29 Cozaar PO 100 mg DAILY MARK Administration Montelukast Sodium 10 mg 02/27/19 21:00 03/05/19 20:02 Singulair PO 10 mg HS MARK Administration Multivitamins 1 tab 03/05/19 09:00 03/05/19 08:29 Theragran PO 1 tab DAILY MARK Administration Polyethylene Glycol 17 gm 03/02/19 09:00 03/05/19 08:31 Miralax PO Not Given DAILY MARK Saccharomyces Boevandii 250 mg 03/03/19 09:00 03/05/19 08:29 Florastor PO 250 mg DAILY MARK Administration Sodium Chloride 10 ml 02/27/19 09:00 03/05/19 20:02 Flush - Normal Saline IVF 10 ml Q12HR MARK Administration Sodium Chloride 10 ml 02/27/19 03:41 02/27/19 03:58 Flush - Normal Saline IVF 10 ml PRN PRN Administration Saline Flush - Exam NAD Heart: no rubs, irregular Respiratory: CTAB, no rales Gastrointestinal: soft, non-tender, non-distended, normal bowel sounds Extremities: no edema Skin: no rashes Hosp A/P (1) Acute mesenteric ischemia Code(s): K55.059 - ACUTE ISCHEMIA OF INTESTINE, PART AND EXTENT UNSPECIFIED Status: Acute (2) Thoracic compression fracture Code(s): S22.000A - WEDGE COMPRESSION FRACTURE OF UNSP THORACIC VERTEBRA, INIT Status: Acute Qualifiers: Thoracic vertebra fracture level: T11 (3) Chronic atrial fibrillation Code(s): I48.2 - CHRONIC ATRIAL FIBRILLATION (4) HLD (hyperlipidemia) Code(s): E78.5 - HYPERLIPIDEMIA, UNSPECIFIED (5) HTN (hypertension) Code(s): I10 - ESSENTIAL (PRIMARY) HYPERTENSION (6) Physical deconditioning Code(s): R53.81 - OTHER MALAISE (7) Other issues per previous notes (8) Hypokalemia Code(s): E87.6 - HYPOKALEMIA Status: Acute - Plan Replace Potassium Lasix changed to PO Cont other meds as above AM labs Stable for dc - Await SNF vs Rehab bed
[2019-03-06] MEDS: Albuterol Sulfate 1.25 MG/3 ML NEB NEB SCH ×5 (00:33→23:24)
[2019-03-06] MEDS: Piperacillin/Tazobactam 3.375 GM in Sodium Chloride 0.9% 100 ML IVPB SCH ×4 (05:12→23:39)
[2019-03-06] MEDS: cloNIDine 0.1 MG TAB PO SCH ×4 (05:14→23:42)
[2019-03-06] MEDS: HYDROcodone/Acetaminophen 5/325 mg Tablet PO PRN ×2 (06:00→17:42)
[2019-03-06 06:09] LABS: Anion Gap 13 mmol/L (10-20); BUN (Urea Nitrogen) 16 mg/dL (9.8-20.1); Calc. Creatinine Clearance 43 mL/min (70-130); Calcium 9.5 mg/dL (7.8-10.44); Carbon Dioxide 35 mmol/L (23-31); Chloride 96 mmol/L (98-107); Estimated GFR-MDRD 63; Glucose 95 mg/dL (83-110); Magnesium 1.9 mg/dL (1.6-2.6); Potassium 3.1 mmol/L (3.5-5.1); Sodium 141 mmol/L (136-145)
[2019-03-06] MEDS ORDERED: Furosemide 40 MG TAB PO SCH (07:30)
[2019-03-06] MEDS: Apixaban 2.5 MG TAB PO SCH ×2 (07:39→20:22)
[2019-03-06] MEDS: Polyethylene Glycol 3350 17 GM Packet PO SCH (07:39)
[2019-03-06] MEDS: Saccharomyces boulardii 250 MG CAP PO SCH (07:39)
[2019-03-06] MEDS: Losartan 25 MG TAB PO SCH (07:39)
[2019-03-06] MEDS: Amlodipine 10 MG TAB PO SCH (07:40)
[2019-03-06] MEDS: Gabapentin 300 MG CAP PO SCH ×3 (07:40→20:23)
[2019-03-06] MEDS: Multivit, Therapeutic 1 TAB PO SCH (07:40)
[2019-03-06] MEDS: Acetaminophen 325 MG TAB PO SCH ×3 (07:40→20:23)
[2019-03-06] MEDS: Potassium Chloride 20 MEQ TAB PO SCH (07:40)
[2019-03-06] MEDS: Magnesium 2 GM/50 ML 2 GM in Premix Bag 1 BAG IVPB SCH (07:41)
[2019-03-06] MEDS: Digoxin 0.125 MG TAB PO SCH (20:22)
[2019-03-06] MEDS: Montelukast Sodium 10 mg Tablet PO SCH (20:23)
[2019-03-06] MEDS: Atorvastatin Calcium 40 MG TAB PO SCH (20:23)
--- NOTE | 2019-03-06 22:14 | PDOC.HOSPP ---
- Subjective Subjective: Patient seen and examined for mesenteric ischemia/back pain. Pain controlled. Awaiting Rehab bed. No N/V. No new complaints. No overnight events - Objective Vital Signs & Weight: Vital Signs (12 hours) Temp Pulse Resp BP BP BP Pulse Ox 03/06/19 20:22 62 03/06/19 19:02 97.6 F 61 20 163/75 H 100 03/06/19 18:51 60 20 03/06/19 17:05 139/64 03/06/19 16:14 98.3 F 60 18 139/64 91 L 03/06/19 13:07 76 24 H 03/06/19 12:40 131/76 03/06/19 11:30 98.2 F 60 18 131/76 92 L Weight Admit Weight 110 lb 3.2 oz Weight 130 lb 12.8 oz Most Recent Monitor Data Heart Rate from ECG 58 NIBP 143/57 NIBP BP-Mean 85 Respiration from ECG 22 SpO2 97 I&O: 03/05/19 03/06/19 03/07/19 06:59 06:59 06:59 Intake Total 1540 1840 1500 Output Total 2425 1999 700 Balance -885 -160 800 Result Diagrams: 03/07/19 05:19 03/07/19 05:19 ROS - Review of Systems All systems: All other ROS were reviewed and found negative. Respiratory: denies: cough, dry, shortness of breath, hemoptysis, SOB with excertion, pleuritic pain, sputum, wheezing, other Cardiovascular: denies: chest pain, palpitations, orthopnea, paroxysmal noc. dyspnea, edema, light headedness, other - Medication Medications: Active Medications Generic Name Dose Route Start Last Admin Trade Name Freq PRN Reason Stop Dose Admin Acetaminophen 650 mg 03/04/19 15:00 03/06/19 20:23 Tylenol PO 650 mg TID MARK Administration Hydrocodone Bitart/Acetaminophen 1 tab 03/03/19 09:15 03/06/19 17:42 [place] 5/325 PO 1 tab Q4H PRN Administration Moderate to Severe Pain (6-10) Hydrocodone Bitart/Acetaminophen 2 tab 03/03/19 09:15 03/04/19 12:53 [place] 5/325 PO 2 tab Q4H PRN Administration Severe Pain (7-10) Albuterol Sulfate 1.25 mg 02/28/19 13:00 03/06/19 18:51 Albuterol Sulfate NEB 1.25 mg [id number] MARK Administration Amlodipine Besylate 10 mg 02/28/19 09:00 03/06/19 07:40 Norvasc PO 10 mg DAILY MARK Administration Apixaban 2.5 mg 03/04/19 09:00 03/06/19 20:22 Eliquis PO 2.5 mg BID MARK Administration Atorvastatin Calcium 40 mg 02/27/19 21:00 03/06/19 20:23 Lipitor PO 40 mg HS MARK Administration Cholecalciferol 1,000 units 02/28/19 21:00 03/06/19 20:23 Vitamin D3 PO 1,000 units HS MARK Administration Clonidine 0.1 mg 03/03/19 12:00 03/06/19 17:05 Catapres PO 0.1 mg Q6HR MARK Administration Digoxin 0.125 mg 03/02/19 21:00 03/06/19 20:22 Lanoxin PO 0.125 mg HS MARK Administration Gabapentin 300 mg 03/03/19 15:00 03/06/19 20:23 Neurontin PO 300 mg TID MARK Administration Hydralazine HCl 10 mg 02/27/19 18:45 02/28/19 03:31 Apresoline SLOW IVP 10 mg Q4H PRN Administration Hypertension Piperacillin Sod/Tazobactam 100 mls @ 200 mls/hr 02/28/19 18:00 03/06/19 17: 05 Sod 3.375 gm/ Sodium Chloride IVPB 100 mls Q6HR MARK Administration Magnesium Sulfate 2 gm/ Device 50 mls @ 50 mls/hr 03/05/19 08:30 03/06/19 07: 41 IVPB 50 mls 0830 MARK Administration Losartan Potassium 100 mg 02/28/19 09:00 03/06/19 07:39 Cozaar PO 100 mg DAILY MARK Administration Montelukast Sodium 10 mg 02/27/19 21:00 03/06/19 20:23 Singulair PO 10 mg HS MARK Administration Multivitamins 1 tab 03/05/19 09:00 03/06/19 07:40 Theragran PO 1 tab DAILY MARK Administration Polyethylene Glycol 17 gm 03/02/19 09:00 03/06/19 07:39 Miralax PO 17 gm DAILY MARK Administration Potassium Chloride 40 meq 03/06/19 08:00 03/06/19 07:40 K-Dur PO 03/07/19 23:59 40 meq QAM-WM MARK Administration Saccharomyces Boulardii 250 mg 03/03/19 09:00 03/06/19 07:39 Florastor PO 250 mg DAILY MARK Administration Sodium Chloride 10 ml 02/27/19 09:00 03/06/19 20:25 Flush - Normal Saline IVF 10 ml Q12HR MARK Administration Sodium Chloride 10 ml 02/27/19 03:41 02/27/19 03:58 Flush - Normal Saline IVF 10 ml PRN PRN Administration Saline Flush - Exam NAD Neck: supple, no JVD Heart: RRR, no rubs Respiratory: CTAB, no rales Gastrointestinal: soft, non-tender, normal bowel sounds Extremities: no edema Hosp A/P (1) Acute mesenteric ischemia Code(s): K55.059 - ACUTE ISCHEMIA OF INTESTINE, PART AND EXTENT UNSPECIFIED Status: Acute (2) Thoracic compression fracture Code(s): S22.000A - WEDGE COMPRESSION FRACTURE OF UNSP THORACIC VERTEBRA, INIT Status: Acute Qualifiers: Thoracic vertebra fracture level: T11 (3) Chronic atrial fibrillation Code(s): I48.2 - CHRONIC ATRIAL FIBRILLATION (4) HLD (hyperlipidemia) Code(s): E78.5 - HYPERLIPIDEMIA, UNSPECIFIED (5) HTN (hypertension) Code(s): I10 - ESSENTIAL (PRIMARY) HYPERTENSION (6) Physical deconditioning Code(s): R53.81 - OTHER MALAISE (7) Other issues per previous notes (8) Hypokalemia Code(s): E87.6 - HYPOKALEMIA Status: Acute - Plan Cont Eliquis Replace Potassium Stable for dc to Rehab BMP in AM
[2019-03-07] MEDS: Piperacillin/Tazobactam 3.375 GM in Sodium Chloride 0.9% 100 ML IVPB SCH ×2 (05:25→11:22)
[2019-03-07] MEDS: cloNIDine 0.1 MG TAB PO SCH ×3 (05:26→17:47)
[2019-03-07 05:39] LABS: Platelet Count 278 thou/uL (130-400)
[2019-03-07 05:51] LABS: Anion Gap 13 mmol/L (10-20); BUN (Urea Nitrogen) 18 mg/dL (9.8-20.1); Calc. Creatinine Clearance 40 mL/min (70-130); Calcium 9.4 mg/dL (7.8-10.44); Carbon Dioxide 30 mmol/L (23-31); Chloride 99 mmol/L (98-107); Estimated GFR-MDRD 60; Glucose 98 mg/dL (83-110); Potassium 3.4 mmol/L (3.5-5.1); Sodium 139 mmol/L (136-145)
[2019-03-07] MEDS: Losartan 25 MG TAB PO SCH (08:33)
[2019-03-07] MEDS: Apixaban 2.5 MG TAB PO SCH ×2 (08:33→20:40)
[2019-03-07] MEDS: Gabapentin 300 MG CAP PO SCH ×3 (08:33→20:40)
[2019-03-07] MEDS: Multivit, Therapeutic 1 TAB PO SCH (08:33)
[2019-03-07] MEDS: Potassium Chloride 20 MEQ TAB PO SCH (08:33)
[2019-03-07] MEDS: Acetaminophen 325 MG TAB PO SCH ×3 (08:33→20:40)
[2019-03-07] MEDS: Amlodipine 10 MG TAB PO SCH (08:33)
[2019-03-07] MEDS: Saccharomyces boulardii 250 MG CAP PO SCH (08:33)
[2019-03-07] MEDS: Magnesium 2 GM/50 ML 2 GM in Premix Bag 1 BAG IVPB SCH (08:34)
[2019-03-07] MEDS: Polyethylene Glycol 3350 17 GM Packet PO SCH (08:34)
[2019-03-07] MEDS: Albuterol Sulfate 1.25 MG/3 ML NEB NEB SCH ×3 (09:00→19:12)
[2019-03-07] MEDS: HYDROcodone/Acetaminophen 5/325 mg Tablet PO PRN ×2 (11:19→16:06)
--- NOTE | 2019-03-07 19:46 | PDOC.HOSPP ---
- Subjective Subjective: Patient seen and examined for mesenteric ischemia. No abd pain. No new complaints. No overnight events - Objective Vital Signs & Weight: Vital Signs (12 hours) Temp Pulse Resp BP BP BP Pulse Ox 03/07/19 19:15 98.0 F 64 20 139/76 94 L 03/07/19 19:12 64 20 95 03/07/19 17:47 157/73 H 03/07/19 16:00 98.0 F 62 18 157/73 H 94 L 03/07/19 13:58 64 16 03/07/19 11:22 149/73 H 03/07/19 11:00 98.1 F 64 18 93 L 03/07/19 09:30 94 L 03/07/19 09:00 57 L 16 03/07/19 08:33 57 L 156/57 H Weight Admit Weight 110 lb 3.2 oz Weight 127 lb 4.8 oz Most Recent Monitor Data Heart Rate from ECG 58 NIBP 143/57 NIBP BP-Mean 85 Respiration from ECG 22 SpO2 97 I&O: 03/06/19 03/07/19 03/08/19 06:59 06:59 06:59 Intake Total 1840 1999 1090 Output Total 1999 1400 550 Balance -160 600 540 Result Diagrams: 03/07/19 05:19 03/07/19 05:19 ROS - Review of Systems All systems: All other ROS were reviewed and found negative. Respiratory: denies: cough, dry, shortness of breath, hemoptysis, SOB with excertion, pleuritic pain, sputum, wheezing, other Cardiovascular: denies: chest pain, palpitations, orthopnea, paroxysmal noc. dyspnea, edema, light headedness, other - Medication Medications: Active Medications Generic Name Dose Route Start Last Admin Trade Name Freq PRN Reason Stop Dose Admin Acetaminophen 650 mg 03/04/19 15:00 03/07/19 15:10 Tylenol PO 650 mg TID MARK Administration Hydrocodone Bitart/Acetaminophen 1 tab 03/03/19 09:15 03/07/19 16:06 [place] 5/325 PO 1 tab Q4H PRN Administration Moderate to Severe Pain (6-10) Hydrocodone Bitart/Acetaminophen 2 tab 03/03/19 09:15 03/04/19 12:53 [place] 5/325 PO 2 tab Q4H PRN Administration Severe Pain (7-10) Albuterol Sulfate 1.25 mg 02/28/19 13:00 03/07/19 19:12 Albuterol Sulfate NEB 1.25 mg [id number] MARK Administration Amlodipine Besylate 10 mg 02/28/19 09:00 03/07/19 08:33 Norvasc PO 10 mg DAILY MARK Administration Apixaban 2.5 mg 03/04/19 09:00 03/07/19 08:33 Eliquis PO 2.5 mg BID MARK Administration Atorvastatin Calcium 40 mg 02/27/19 21:00 03/06/19 20:23 Lipitor PO 40 mg HS MARK Administration Cholecalciferol 1,000 units 02/28/19 21:00 03/06/19 20:23 Vitamin D3 PO 1,000 units HS MARK Administration Clonidine 0.1 mg 03/03/19 12:00 03/07/19 17:47 Catapres PO 0.1 mg Q6HR MARK Administration Digoxin 0.125 mg 03/02/19 21:00 03/06/19 20:22 Lanoxin PO 0.125 mg HS MARK Administration Gabapentin 300 mg 03/03/19 15:00 03/07/19 15:10 Neurontin PO 300 mg TID MARK Administration Hydralazine HCl 10 mg 02/27/19 18:45 02/28/19 03:31 Apresoline SLOW IVP 10 mg Q4H PRN Administration Hypertension Magnesium Sulfate 2 gm/ Device 50 mls @ 50 mls/hr 03/05/19 08:30 03/07/19 08: 34 IVPB 50 mls 0830 MARK Administration Losartan Potassium 100 mg 02/28/19 09:00 03/07/19 08:33 Cozaar PO 100 mg DAILY MARK Administration Montelukast Sodium 10 mg 02/27/19 21:00 03/06/19 20:23 Singulair PO 10 mg HS MARK Administration Multivitamins 1 tab 03/05/19 09:00 03/07/19 08:33 Theragran PO 1 tab DAILY MARK Administration Polyethylene Glycol 17 gm 03/02/19 09:00 03/07/19 08:34 Miralax PO 17 gm DAILY MARK Administration Potassium Chloride 40 meq 03/06/19 08:00 03/07/19 08:33 K-Dur PO 03/07/19 23:59 40 meq QAM-WM MARK Administration Saccharomyces Boulardii 250 mg 03/03/19 09:00 03/07/19 08:33 Florastor PO 250 mg DAILY MARK Administration Sodium Chloride 10 ml 02/27/19 09:00 03/07/19 08:34 Flush - Normal Saline IVF 10 ml Q12HR MARK Administration Sodium Chloride 10 ml 02/27/19 03:41 02/27/19 03:58 Flush - Normal Saline IVF 10 ml PRN PRN Administration Saline Flush - Exam NAD Heart: RRR, no rubs Respiratory: CTAB, no rales Gastrointestinal: soft, non-tender, normal bowel sounds Extremities: no edema Hosp A/P (1) Acute mesenteric ischemia Code(s): K55.059 - ACUTE ISCHEMIA OF INTESTINE, PART AND EXTENT UNSPECIFIED Status: Acute (2) Thoracic compression fracture Code(s): S22.000A - WEDGE COMPRESSION FRACTURE OF UNSP THORACIC VERTEBRA, INIT Status: Acute Qualifiers: Thoracic vertebra fracture level: T11 (3) Chronic atrial fibrillation Code(s): I48.2 - CHRONIC ATRIAL FIBRILLATION (4) HLD (hyperlipidemia) Code(s): E78.5 - HYPERLIPIDEMIA, UNSPECIFIED (5) HTN (hypertension) Code(s): I10 - ESSENTIAL (PRIMARY) HYPERTENSION (6) Physical deconditioning Code(s): R53.81 - OTHER MALAISE (7) Other issues per previous notes (8) Hypokalemia Code(s): E87.6 - HYPOKALEMIA Status: Acute - Plan plan discussed w/ family Patient accepted at Rehab . However, now wishes to go to SNF in [place]. Consult CM for SNF placement Cont Eliquis Cont to replace Potassium DC IV Zosyn Stable for dc
[2019-03-07] MEDS: Digoxin 0.125 MG TAB PO SCH (20:40)
[2019-03-07] MEDS: Montelukast Sodium 10 mg Tablet PO SCH (20:40)
[2019-03-07] MEDS: Atorvastatin Calcium 40 MG TAB PO SCH (20:40)
[2019-03-08] MEDS: Albuterol Sulfate 1.25 MG/3 ML NEB NEB SCH ×3 (00:10→12:00)
[2019-03-08] MEDS: cloNIDine 0.1 MG TAB PO SCH ×3 (00:56→13:08)
[2019-03-08] MEDS: Polyethylene Glycol 3350 17 GM Packet PO SCH (07:59)
[2019-03-08] MEDS: Losartan 25 MG TAB PO SCH (07:59)
[2019-03-08] MEDS: Apixaban 2.5 MG TAB PO SCH (08:00)
[2019-03-08] MEDS: Multivit, Therapeutic 1 TAB PO SCH (08:00)
[2019-03-08] MEDS: Magnesium 2 GM/50 ML 2 GM in Premix Bag 1 BAG IVPB SCH (08:00)
[2019-03-08] MEDS: Gabapentin 300 MG CAP PO SCH (08:00)
[2019-03-08] MEDS: Amlodipine 10 MG TAB PO SCH (08:00)
[2019-03-08] MEDS: Saccharomyces boulardii 250 MG CAP PO SCH (08:00)
[2019-03-08] MEDS: Acetaminophen 325 MG TAB PO SCH (08:17)
[2019-03-08 08:46] VITALS: BP 144/54; TEMP 98.1
[2019-03-08] MEDS: HYDROcodone/Acetaminophen 5/325 mg Tablet PO PRN (13:07)
--- NOTE | 2019-03-09 11:00 | DIS ---
DATE OF ADMISSION: 02/27/2019 DATE OF DISCHARGE: 03/08/2019 DISCHARGE DISPOSITION: To [facility]. The patient was seen and examined on the day of discharge. Denies any new complaints. No chest pain, shortness of breath, palpitations, or nausea or vomiting. FOLLOWUP: 1. Follow up with primary care physician, in 1 week. 2. Follow up with General Surgery, Dr. Obed Quiros in 1 to 2 weeks. 3. Follow up with Cardiology, Dr. Verma in 2 weeks. 4. Follow up with Neurosurgery, Dr. Ramsay in 2 to 3 weeks. ALLERGIES: NO KNOWN DRUG ALLERGIES. DISCHARGE MEDICATIONS: 1. Eliquis 2.5 mg b.i.d. 2. Vitamin D3 1000 units at bedtime. 3. Clonidine 0.1 mg 3 times daily. 4. Digoxin 250 mcg at bedtime. 5. Hydralazine 50 mg b.i.d. 6. Losartan 100 mg daily. 7. Singulair 10 mg at bedtime. 8. Systane eye drops twice a day. 9. Simvastatin 80 mg at bedtime. 10. Tylenol 3 times a day. 11. Amlodipine 10 mg daily. 12. Gabapentin 300 mg 3 times a day. 13. [place] as needed. 14. Multivitamin 1 tablet daily. 15. MiraLAX daily. 16. Potassium chloride 20 mEq daily for next 5 days. 17. Florastor 250 mg daily. BRIEF HOSPITAL COURSE: The patient is an 88-year-old female with chronic atrial fibrillation, currently not on anticoagulation, presented to the hospital with abdominal discomfort. She also had an episode of fall prior to admission. Please refer to the history and physical dictated by Dr. Méndez for further details. The patient was admitted to the hospital with a diagnosis of suspected bowel ischemia. She was started on heparin drip. She also had an episode of syncope with fall that was probably vasovagal. She was monitored in the intermediate care unit. Abdominal discomfort gradually improved. CTA of the abdomen and pelvis showed high-grade and hemodynamically significant stenosis involving the origin of renal artery with mild narrowing of the celiac artery and moderate to severe narrowing of the superior mesenteric artery. She was also found to have T11 compression fracture. TLSO brace has been arranged. She was seen by multiple consultants including Cardiology, General Surgery, Gastroenterology as well as Neurosurgery. Anticoagulation was recommended by Cardiology. Heparin drip was transitioned to Eliquis. She will require a TLSO brace as directed. Event monitor will be arranged by Dr. Verma. A repeat CBC and CMP after 1 week are recommended. Primary care physician advised to follow. FINAL DIAGNOSES: 1. Abdominal discomfort secondary to acute ischemic colitis. 2. Syncope, probably secondary vasovagal from significant nausea. 3. Fall causing T11 compression fracture. TLSO brace has been arranged. 4. Chronic atrial fibrillation, started on anticoagulation. 5. Hyperlipidemia. 6. Hypertension. 7. Physical deconditioning. 8. Hypokalemia, replaced. 9. Vitamin D deficiency. 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 11. Chronic anemia. 12. Chronic kidney disease, stage 2. 13. Elevated troponin secondary to demand ischemia/type 2 myocardial infarction. 14. Hyponatremia. 15. Moderate protein-calorie malnutrition. 16. Bilateral high-grade renal artery stenosis. 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 18. Bilateral renal cyst. Total time coordinating the discharge of this patient was 36 minutes. I discussed the care with primary care physician, on the day of discharge. Job ID: [id number]
== END 2019-03-08 14:26 | DRG 393 ==
LOC: ERS 23:11 → SURG A 02-27 02:54 → OBSVTOIN 02-27 11:15 → 2NO 02-27 12:41 → IMCU/EMU 02-28 13:05 → T4-A 03-04 23:49
PROVIDERS: ADMIT Internal Medicine; ATTEND Internal Medicine
DX: K55.039 Acute (reversible) ischemia of large intestine, extent unspecified (principal); I50.33 Acute on chronic diastolic (congestive) heart failure; M80.08XA Age-related osteoporosis with current pathological fracture, vertebra(e), initial encounter for fracture; J98.11 Atelectasis; I48.2 Chronic atrial fibrillation; I70.1 Atherosclerosis of renal artery; E78.5 Hyperlipidemia, unspecified; E87.6 Hypokalemia; I34.0 Nonrheumatic mitral (valve) insufficiency; I11.0 Hypertensive heart disease with heart failure; G89.4 Chronic pain syndrome; E83.42 Hypomagnesemia; W18.39XA Other fall on same level, initial encounter; R53.81 Other malaise; M19.90 Unspecified osteoarthritis, unspecified site; Z79.01 Long term (current) use of anticoagulants; Z90.49 Acquired absence of other specified parts of digestive tract; Z90.710 Acquired absence of both cervix and uterus; Y93.89 Activity, other specified; Y92.091 Bathroom in other non-institutional residence as the place of occurrence of the external cause
CPT/HCPCS: 36415; 51702; 71045; 74174; 80048; 80053; 80061; 80162; 83605; 83735; 83880; 84100; 84145; 84484; 85007; 85014; 85018; 85025; 85027; 85049; 85730; 93005; 93010; 93306; 93880; 94640; 94660; 96361; 96374; J0131; J0360; J1644; J1885; J1940; J2270; J2405; J2543; J2550; J3475; J3480; J3490; J7050; L0639; Q9966

== ENCOUNTER 2019-04-14 15:14 | Outpatient (CLI) | payer MEDICARE ==
--- NOTE | 2019-04-14 16:28 | RAD ---
LUMBAR SPINE RADIOGRAPH SERIES TWO VIEWS: 04/14/19 COMPARISON: 02/26/19. INDICATION: T10 burst fracture. FINDINGS: Partially imaged compression deformity of the low thoracic spine is present. There is grade I spondyl olisthesis at the level of the lumbosacral junction. There is severe facet degeneration and sclerosis of this region. Osseous structures are demineralized. There are extrinsic artifacts. Atherosclerosis of the aorta noted. IMPRESSION: Partially imaged compression deformity at the low thoracic spine. Degenerative change and spondylolisthesis of the lumbar spine. POS: C
--- NOTE | 2019-04-14 16:30 | RAD ---
THORACIC SPINE RADIOGRAPH SERIES 2 VIEWS: Date: 04/14/19 Reference made to lumbar spine radiograph series dated 02/26/19. FINDINGS: Redemonstration of the compression fracture of the lower thoracic spine, with moderate to severe cent ral height loss, stable to slightly progressed in central height loss. There is associated sclerosis. This projects at the T11 level. There is prominent multilevel degenerative change of the thoracic sp ine, severe kyphosis and osseous demineralization. There is mild right convexity curvature of the tho racic spine. IMPRESSION: Stable to slightly progressed moderate to severe compression fracture of T11. POS: [facility]
== END 2019-04-14 15:15 | disposition home or self-care (01) ==
LOC: TBSIIMAG 15:14
PROVIDERS: ATTEND Surgery
DX: S22.071A Stable burst fracture of T9-T10 vertebra, initial encounter for closed fracture (principal); M43.16 Spondylolisthesis, lumbar region; M47.816 Spondylosis without myelopathy or radiculopathy, lumbar region; M43.8X4 Other specified deforming dorsopathies, thoracic region; S22.081A Stable burst fracture of T11-T12 vertebra, initial encounter for closed fracture
CPT/HCPCS: 72072; 72100

== ENCOUNTER 2019-05-19 09:25 | Outpatient (CLI) | payer MEDICARE ==
--- NOTE | 2019-05-19 10:56 | RAD ---
LUMBAR SPINE TWO VIEWS: HISTORY: Back pain. Thoracic pain. Follow up fracture. COMPARISON: Lumbar films from 04/14/2019. FINDINGS: Compression deformity at the T11 vertebra is again seen and appears stable from the prior exam. The lumbar vertebrae maintain height with no interval change. Anterolisthesis at L5-S1 is stable. IMPRESSION: Stable lumbar spine findings. POS: [facility]
== END 2019-05-19 09:26 | disposition home or self-care (01) ==
LOC: TBSIIMAG 09:25
PROVIDERS: ATTEND Surgery
DX: M54.6 Pain in thoracic spine (principal)
CPT/HCPCS: 72100